=== PATIENT | female | born 1945 | race Caucasian/White ===

== ENCOUNTER 2023-01-01 15:08 | Outpatient (CLI) | payer MEDICARE, BC, SELFPAY | END 2023-01-01 15:09 | disposition home or self-care (01) | LOC: NFLDREF 15:17 | PROVIDERS: PCP Internal Medicine; Visit Provider Internal Medicine | DX: R10.9 Unspecified abdominal pain (principal); R53.81 Other malaise | CPT/HCPCS: 80053; 87086; 87186 ==

== ENCOUNTER 2023-01-03 10:55 | Outpatient (CLI) | payer MEDICARE, BC, SELFPAY ==
--- NOTE | 2023-01-03 11:00 | CRLHL7_ITS ---
For Patients: As a result of the Century Cures Act, medical imaging exams and procedure reports are released immediately into your electronic medical record. You may view this report before your referring provider. If you have questions, please contact your health care provider. Indication: right abdominal pain Technique: Noncontrast CT abdomen and pelvis Please note that all CT scans at this facility use dose modulation, iterative reconstruction, and/or weight-based dosing when appropriate to reduce radiation dose to as low as reasonably achievable. Comparison: 04/29/2020 Findings: Pleural thickening along the right posterior lateral lung base noted. No basilar pneumothorax or infiltrate. The gallbladder is distended and there is wall thickening/wall edema with the gallbladder wall measuring approximately 6 millimeters. Adjacent stranding noted inferior to the gallbladder. Numerous partially calcified gallstones are again noted within the gallbladder. A large stone is present superiorly measuring 3.2 cm which is either new from the prior study or increased in size and may extend into the cystic duct. The pancreas is normal. The spleen is unremarkable. The adrenal glands are within normal limits. Improved appearance of the left kidney with mild residual stone material within the lower pole collecting system measuring up to 8 millimeters. New stones are present within the right kidney including a 1 centimeter stone in the right renal pelvis and a atherosclerotic disease. No bladder stones. Uterus normal. No adnexal mass. There is no bowel obstruction. No abscess. No fracture. No suspicious lymph nodes. 5 millimeter stone in the lower pole collecting system. Impression: Distended gallbladder with gallbladder wall thickening/edema and pericholecystic inflammatory changes. There is a large stone within the gallbladder neck which appears to extend into the proximal cystic duct. Findings are suspicious for acute cholecystitis. Decreased stone burden regarding the left kidney. New stones within the right kidney. Mild residual mucosal hyperemia involving the left renal pelvis. Please note that all CT scans at this facility use dose modulation, iterative reconstruction, and/or weight-based dosing when appropriate to reduce radiation dose to as low as reasonably achievable. Dictated by Jose L Herrera MD @ 01/03/2023 12:34:20 PM (Electronically Signed)
== END 2023-01-03 10:56 | disposition home or self-care (01) ==
PROVIDERS: PCP Internal Medicine; Visit Provider Internal Medicine
DX: R10.9 Unspecified abdominal pain (principal); K80.21 Calculus of gallbladder without cholecystitis with obstruction; N20.0 Calculus of kidney
CPT/HCPCS: 74176

== ENCOUNTER 2023-01-07 13:19 | Outpatient (CLI) | payer MEDICARE, BC, SELFPAY | END 2023-01-07 13:20 | disposition home or self-care (01) | LOC: NFLDREF 13:20 | PROVIDERS: PCP Internal Medicine; Visit Provider Surgery | DX: Z01.818 Encounter for other preprocedural examination (principal) | CPT/HCPCS: 80076 ==

== ENCOUNTER 2023-01-15 16:11 | Inpatient (IN) | payer MEDICARE, BC, SELFPAY ==
[2023-01-14] VITALS (28 sets, daily range): BP systolic 124–154; BP diastolic 63–86; PULSE 75–99; RESP 12–24; TEMP 35.8–37.2; O2SAT 95–100; BMI 29.4
[2023-01-14] MEDS: SODIUM CHLORIDE 0.9 % (FLUSH) 10 ML SYRINGE IVF (07:25)
[2023-01-14] MEDS: LACTATED RINGERS 1000 ML 1,000 ML 100 ML IV ×2 (07:25→23:55)
--- NOTE | 2023-01-14 07:41 | SUR.PREOP ---
Patient provided home covid negative results to RN.
[2023-01-14] MEDS: CEFAZOLIN 2 GM INJ IVP (08:32)
[2023-01-14] MEDS: BUPIVACAINE 0.25% 30 ML INJECTION (09:27)
--- NOTE | 2023-01-14 10:19 | SUR.OPER ---
Pt family updated at 0935 by Fay Lopez RN
[2023-01-14] MEDS: BUPIVACAINE LIPOSOME 133 MG/10 ML INJ INFILTRATI (11:45)
--- NOTE | 2023-01-14 12:11 | W.ANESCHARGE ---
Anesthesia Charges Start Date/Time Anesthesia Start Date: 01/14/23 Anesthesia Start Time: 08:15 Stop Date/Time Anesthesia Stop Date: 01/14/23 Anesthesia Stop Time: 12:14
--- NOTE | 2023-01-14 12:17 | PM.GSPRC ---
Operative Note Date of procedure: 01/14/23 Pre-op diagnosis: Cholecystitis Post-op diagnosis: Gangrenous cholecystitis Type of Procedure: Laparoscopic converted to open fenestrated cholecystectomy Indications: The patient is a 77-year-old female who several weeks ago presented with weakness and vomiting for several days. Workup revealed elevated liver tests and a urinary tract infection. CT scan showed gallbladder wall thickening with edema. The patient was placed on antibiotics and because she is able to tolerate liquids was told to follow up in surgery Clinic. When she was seen in clinic last week she was completely asymptomatic. Her labs had returned to normal. Because of the severity of her symptoms it was recommended that she undergo cholecystectomy. The initial plan was to also perform a cholangiogram given her elevated bilirubin. Procedure Description: After discussing the risks and benefits of the procedure, the patient signed informed consent.? The operative site was marked and the patient was brought to the operating room and placed on the operating table in supine position.? Care was taken to pad the patient's pressure points.?? The patient was then intubated by anesthesia.?? The operative site was then prepped and draped in the usual sterile fashion.? A time-out was then performed. ? Entrance to the abdomen was gained via a 5 mm Visiport in the left upper quadrant. The abdomen was insufflated and briefly surveyed for signs of injury. There was none. A 10 mm umbilical port was placed as well as 2 working ports along the right costal margin, all under direct vision. The patient was then placed in reverse Trendelenburg position with the right side up. There was omentum adherent to the gallbladder and the gallbladder and liver were adherent to the anterior abdominal wall. The omental adhesions were taken down using cautery and blunt dissection. The gallbladder wall was noted to be gangrenous in a few patchy areas. The gallbladder was thickened. A needle was advanced into the abdomen to aspirate bile. The bile was cloudy. This was sent for culture. The gallbladder fundus was grasped and retracted cephalad. The duodenum was noted to be adherent to the infundibulum of the gallbladder. This was carefully taken down with blunt dissection with out noted injury to the duodenum. A combination of hook cautery and blunt dissection was used to attempt to dissect out the cystic duct and artery. The tissue here was very [place], edematous and inflamed. It was very difficult to achieve the critical view. It appeared as though there were at least 2 duct like structures below the infundibulum of the gallbladder. Using a combination of careful blunt dissection using the Noreen dissector and suction irrigation, I attempted to dissect behind the structures, however the tissue was very firm. Using hook cautery, incised the peritoneum on the lateral and medial aspect of the gallbladder I then attempted to remove the gallbladder off of the liver bed higher up and take my dissection inferiorly. However, the gallbladder appeared to be deep within the liver and the the gallbladder tore as I attempted to dissect this. I attempted once more to carefully dissect out the ductal structures below the infundibulum, however the tissue was just too inflamed to do this safely. At this point because I could not dissect out the ductal structures and I also could not establish a plane between the gallbladder and liver, I chose to convert to open. An incision was made 2 finger breaths below the ribs in the right upper quadrant to incorporate 1 of the ports. Dissection was taken down into the subcutaneous tissue using cautery. The fascia was then incised. The muscle fibers were also divided with cautery, with care to cauterize any vessels that were encountered. The Omni retractor was then brought into view and the abdominal wall as well as the colon and stomach were retracted so that the gallbladder was in view. Using cautery, I then incised the peritoneum over the cirrhosis/peritoneum of the gallbladder at the fundus. I left a small cuff of tissue on the liver to use for retraction. Immediately the gallbladder was noted to be gangrenous here. I continued my dissection downward, entering the gallbladder many times as the back wall the gallbladder was completely necrotic. Several large stones were removed from the gallbladder and sent to pathology. I was able to safely reach the level of the infundibulum posteriorly. Now, I was left with what appeared to be the node of Calot in its usual location however the duct and artery were firmly imbedded in to the surrounding inflamed tissue. I attempted dissection with a right angle as well as cautery, however I was unable to safely dissect them out. I then made the decision that I would perform a fenestrated cholecystectomy. Using cautery I divided the gallbladder just proximal to the infundibulum. The area of the cystic artery above where the previously identified likely node was bleeding and was oversewn with 3-0 Vicryl resulting in hemostasis. What appeared to be the duct was identified in the appropriate location. All stones were removed from the gallbladder and the duct. I did attempt to perform a cholangiogram, advancing a cholangiocatheter into the duct, however I was unable to obtain a seal using saline. Therefore I aborted the cholangiogram. I then used cautery to ablate the mucosa of the cuff of gallbladder that remained. I then used 3-0 PDS to over-sew the duct opening after irrigating to ensure that there were no stones impacted within. Hemostasis appeared excellent at this point. I then irrigated the abdomen and ensure that all the stones had been retrieved. A 19 Yoruba Kade drain was placed through the most lateral right-sided port and sewn into place. This was placed just posterior to the cuff of the gallbladder. A tongue of omentum was then created, ligating and dividing this with ties. This was placed over the cuff of gallbladder that remained. The retractors were then removed. The duodenum was again examined and appeared to be without injury. The fascia was then closed in layers using #1 PDS. 0.25% Marcaine with Exparel were then injected into the fascia. The wound was irrigated and Betina's fascia was closed with 3 0 Vicryl suture. The dermal layer was closed with 3 0 Vicryl. The the umbilical port site fascia was closed with 0 Vicryl the left upper quadrant and umbilical port were then closed with 4-0 Monocryl. The right upper quadrant incision was closed with 4-0 Monocryl. Of note, before fascial closure instruments and gloves were changed to a clean setup. Sterile dressings were then applied. Instrument sponge and needle counts were correct at the end of the case. The patient was then woken and transferred to the PACU in stable condition. The patient tolerated the procedure well. Findings: Gangrenous cholecystitis with significant inflammation. Several large gallstones noted within the gallbladder. Anesthesia: GETA Surgeon: Teresa Maurer MD Estimated blood loss (mL): 150 Specimen: Gallbladder Additional Specimen Information: Bile for culture Condition: stable Disposition: PACU
[2023-01-14] MEDS: fentaNYL 100 MCG/2 ML inj 50 MCG IVP ×2 (12:47→13:04)
--- NOTE | 2023-01-14 13:24 | SUR.PHASEI ---
patient met discharge criteria per anesthesia
[2023-01-14] MEDS: HYDROmorphone 0.5 mg/0.5 ml inj IVP ×4 (14:36→23:55)
[2023-01-14] MEDS: PIPERACILLIN/TAZOBACTAM 3.375 GM in 0.9 % SODIUM CHLORIDE Mini-bag 100 ML IVPB ×2 (14:36→19:36)
--- NOTE | 2023-01-14 19:28 | PC.NURSE ---
Pt admit around 1330 from PACU. Initially drowsy, vitals stable on RA, afebrile. Pt stated pain 3/10 to abdomen. Pt has been up x2 ambulating to bathroom. Alert and oriented, pleasant. Dressing to abdomen CDI, NANCY drain had 40ml of bloody output this shift. Pt's cousin 'Felicia' at bedside this shift, pleasant and helpful. Pt voiding pale yellow urine. Pt on clear liquid diet, tolerating thus far. Pt received PRN IV Dilaudid for pain, stated effectiveness. SCDs, TEDs on. Received IV Zosyn. On LR at 100ml/hr. Pt has call light within reach, uses appropriately.
[2023-01-15] VITALS (7 sets, daily range): BP systolic 127–162; BP diastolic 61–80; PULSE 78–89; RESP 16–18; TEMP 36.2–37.3; O2SAT 95–99
[2023-01-15] MEDS: PIPERACILLIN/TAZOBACTAM 3.375 GM in 0.9 % SODIUM CHLORIDE Mini-bag 100 ML IVPB ×4 (01:35→19:38)
[2023-01-15] MEDS: HYDROmorphone 0.5 mg/0.5 ml inj IVP ×7 (02:39→21:38)
--- NOTE | 2023-01-15 06:34 | PC.NURSE ---
Shift note: Surgical dressing is C/D/I, NANCY is draining large amounts serosanguineous/yellowing fluid. Pain 3-5/10 treated per eMAR with relief, pt ambulates to the bathroom with SBA, tolerates activity well. No c/o nausea, afebrile, voiding.
[2023-01-15 06:45] LABS: Basophils Percent Auto 0.2 % (0.0-3.0); Eosinophils Percent Auto 0.1 % (0.0-7.0); Hematocrit 38.4 % (33.0-51.0); Hemoglobin* 12.3 gm/dL (12.0-16.0); Immature Granulocytes Pct Auto 0.1 %; Mean Corpuscular HGB Conc 32 gm/dL (32-36); Mean Corpuscular Hemoglobin 30 pg (26-34); Mean Corpuscular Volume 94 fL (80-100); Monocytes Percent Auto 6.1 % (0.0-11.0); Neutrophils Percent Auto 79.5 % (42.0-72.0); Platelet Count* 354 K/uL (140-440); RDW Coefficient of Variation % 13.5 % (11.5-15.5); Red Blood Count 4.08 m/uL (4.00-5.20); Slide Review Reflex No
[2023-01-15 06:58] LABS: Albumin* 3.4 g/dL (3.3-5.0); Chloride* 107 mmol/L (96-114); Sodium* 138 mmol/L (135-149)
[2023-01-15 06:59] LABS: Potassium* 5.3 mmol/L (3.6-5.1)
[2023-01-15 07:01] LABS: Alanine Aminotransferase* 44 U/L (4-35); Alkaline Phosphatase* 84 U/L (40-150); Aspartate Amino Transferase* 51 U/L (12-35); Bilirubin Direct* 0.1 mg/dL (0.0-0.5); Bilirubin Total* 0.6 mg/dL (0.1-1.5); Blood Urea Nitrogen* 16 mg/dL (7-30); Carbon Dioxide* 27 mmol/L (20-32); Creatinine* 0.8 mg/dL (0.5-1.5); Est. Creatinine Clearance* 37.26; Estimated Glomerular Filt Rate 76 ml/min; Glucose* 121 mg/dL (60-115); Total Protein* 6.3 g/dL (6.0-8.3)
[2023-01-15 07:02] LABS: Calcium* 9.4 mg/dL (8.4-10.6)
--- NOTE | 2023-01-15 09:35 | CRLHL7_ITS ---
For Patients: As a result of the Century Cures Act, medical imaging exams and procedure reports are released immediately into your electronic medical record. You may view this report before your referring provider. If you have questions, please contact your health care provider. HISTORY: 77-year-old female. Status post cholecystectomy on 01/14/2023. Drainage tube in place in the gallbladder fossa. TECHNIQUE: 5.44 millicuries of [id number] was injected intravenously. Images of the liver and abdomen were obtained in the anterior projection for 60 minutes. FINDINGS: There is good uptake of activity by the hepatocytes. There is visualization of the intra and extrahepatic biliary tree and small bowel. There is filling of activity into the gallbladder fossa. This then passes into the drainage tube that is located in the gallbladder fossa. This appears to be arising from the area of the cystic duct. This is consistent with a bile leak. IMPRESSION: 1. There are findings consistent with a bile leak, probably arising from the cystic duct area. 2. These findings were called to and discussed with Dr. Maurer on 01/15/2023 at approximately 2:15 p.m. Dictated by Jose Vicente MD @ 01/15/2023 2:14:53 PM (Electronically Signed)
--- NOTE | 2023-01-15 09:47 | P.GSPN_ITS ---
Subjective Subjective Date Seen: 01/15/23 Interval history: Kailey was stable overnight. No fevers. No nausea. Has not been ambulating in the halls. Pain is reasonably controlled. She has been using her IS but admittedly not frequently. Exam Narrative: Exam Narrative: General: Alert, oriented, no acute distress Pulmonary: Clear to auscultation bilaterally CV: Regular rate and rhythm Abdomen: Dressing is clean and dry. Drain output is bilious appearing. She has had approximately 300 mL out since surgery. Urine output has been copious with almost 2 L out since surgery. Const: Vital Signs, click to edit/add: Vital Signs - 24 hr 01/14/23 12:09 01/14/23 12:20 01/14/23 12:45 Temperature 97.5 F L 97.5 F L 97.3 F L Pulse Rate 77 75 82 Pulse Rate [Right Pulse Oximeter] Respiratory Rate 12 24 20 Blood Pressure 136/63 148/70 H 133/69 Blood Pressure [Le ft Arm] Pulse Oximetry 98 100 97 Oxygen Delivery [facility] 01/14/23 13:00 01/14/23 12:15 01/14/23 12:25 Temperature 97.3 F L 97.5 F L 97.5 F L Pulse Rate 85 77 85 Pulse Rate [Right Pulse Oximeter] Respiratory Rate 20 24 20 Blood Pressure 137/69 142/76 H 142/71 H Blood Pressure [Le ft Arm] Pulse Oximetry 96 100 100 Oxygen Delivery [facility] 01/14/23 12:30 01/14/23 12:35 01/14/23 12:40 Temperature 97.5 F L 97.5 F L 97.3 F L Pulse Rate 85 84 85 Pulse Rate [Right Pulse Oximeter] Respiratory Rate 20 24 20 Blood Pressure 132/74 130/68 134/67 Blood Pressure [Le ft Arm] Pulse Oximetry 97 97 97 Oxygen Delivery [facility] 01/14/23 12:50 01/14/23 12:55 01/14/23 13:05 Temperature 97.3 F L 97.3 F L 97.3 F L Pulse Rate 84 85 85 Pulse Rate [Right Pulse Oximeter] Respiratory Rate 20 16 22 Blood Pressure 127/67 128/66 124/68 Blood Pressure [Le ft Arm] Pulse Oximetry 96 95 97 Oxygen Delivery [facility] 01/14/23 13:10 01/14/23 13:15 01/14/23 13:22 Temperature 97.3 F L 97.3 F L Pulse Rate 85 84 Pulse Rate [Right Pulse Oximeter] Respiratory Rate 22 20 Blood Pressure 128/68 131/66 Blood Pressure [Le ft Arm] Pulse Oximetry 97 97 97 Oxygen Delivery [facility] 01/14/23 13:22 01/14/23 13:22 01/14/23 13:45 Temperature 96.4 F L 96.4 F L 96.9 F L Pulse Rate 88 Pulse Rate [Right Pulse Oximeter] 88 90 Respiratory Rate 20 20 20 Blood Pressure Blood Pressure [Le ft Arm] 130/73 130/73 127/63 Pulse Oximetry 97 96 Oxygen Delivery Me thod Room Air Room Air Room Air 01/14/23 14:00 01/14/23 14:15 01/14/23 14:30 Temperature 96.9 F L 97.6 F Pulse Rate Pulse Rate [Right Pulse Oximeter] 92 84 86 Respiratory Rate 20 20 20 Blood Pressure Blood Pressure [Le ft Arm] 127/65 138/71 128/70 Pulse Oximetry 98 98 98 Oxygen Delivery Me thod Room Air Room Air Room Air 01/14/23 15:00 01/14/23 15:30 01/14/23 16:30 Temperature 97.6 F 97.4 F L Pulse Rate Pulse Rate [Right Pulse Oximeter] 94 93 99 Respiratory Rate 20 20 18 Blood Pressure Blood Pressure [Le ft Arm] 125/71 127/70 134/67 Pulse Oximetry 98 96 96 Oxygen Delivery Me thod Room Air Room Air Room Air 01/14/23 17:30 01/14/23 18:30 01/14/23 19:00 Temperature 97.9 F 97.4 F L 98 F Pulse Rate Pulse Rate [Right Pulse Oximeter] 89 92 94 Respiratory Rate 18 18 18 Blood Pressure Blood Pressure [Le ft Arm] 139/77 154/86 H 147/80 H Pulse Oximetry 96 96 98 Oxygen Delivery Me thod Room Air Room Air Room Air 01/14/23 19:30 01/14/23 23:00 01/14/23 23:00 Temperature 98 F 98 F Pulse Rate Pulse Rate [Right Pulse Oximeter] 94 96 96 Respiratory Rate 18 18 18 Blood Pressure Blood Pressure [Le ft Arm] 147/80 H 153/83 H Pulse Oximetry 98 98 Oxygen Delivery Me thod Room Air Room Air 01/15/23 03:00 01/15/23 07:45 01/15/23 07:45 Temperature 98 F 97.2 F L Pulse Rate Pulse Rate [Right Pulse Oximeter] 89 87 Respiratory Rate 16 16 Blood Pressure Blood Pressure [Le ft Arm] 149/80 H 138/75 Pulse Oximetry 97 97 97 Oxygen Delivery Me thod Room Air Room Air Labs/Imaging Labs Labs: White blood cell count is slightly elevated at 13. Liver tests are normal except for mildly elevated AST and ALT of 51 and 44. Bilirubin is within normal limits. Hemoglobin is 12.3. Electrolytes reveal a mildly elevated potassium at 5.3. Imaging Imaging: HIDA scan done today. 01/15 1. There are findings consistent with a bile leak, probably arising from the cystic duct area. 2. These findings were called to and discussed with Dr. Maurer on 01/15/2023 at approximately 2:15 p.m. Progress Note: A&P Assessment and plan (1) Hyperkalemia: Status: Acute Assessment and Plan: Have stopped lactated Ringer's. Change IV fluids to normal saline. Will recheck potassium. If it remains elevated will treat. (2) S/P cholecystectomy: Status: Acute Assessment and Plan: Gangrenous cholecystitis. Significant inflammation necessitating conversion to open. Cultures of bile pending. Patient remains on antibiotics. Drain left in place. This morning this appears bilious. HIDA scan shows bile leak which appears to be coming from the cystic duct stump based on discussion with radiologist and review of imaging. This is not surprising given the degree of inflammation and quality of the tissue. It appears to be well drained. Discussed with gastroenterology, since patient is stable we are going to plan on attempting to discharge her home with ERCP sphincterotomy and possible stent placement as outpatient. This would likely be done or Saturday. If her status changes and she needs to have the procedure done more urgently then we would potentially perform ambulance transfer pending bed availability. As mentioned the bile leak appears to be well drained at this point. Discuss this with the patient and her family. They are all agreeable with this plan. Plan Continue to encourage IS. Clear liquid diet for now. Will start Lovenox.
[2023-01-15] MEDS: 0.9 % SODIUM CHLORIDE 1000 ml 1,000 ML 125 ML IV ×2 (11:23→21:38)
[2023-01-15] MEDS: ENOXAPARIN 40 MG/0.4 ML INJ SUBCUT (21:38)
--- NOTE | 2023-01-15 23:31 | PC.NURSE ---
End of shift-- Very pleasant and cooperative, alert and oriented patient. VSS and pt is afebrile. SPO2 maintained >94% on RA. Pain appears well managed with Dilaudid PRN. Dressing to abdomen is C/D/I. Lap sites to left of dressing and at umbilicus are FIG WASHER. LS CTA. IS completed to 1250 and pt was encouraged to use independently. BS+ x4, though pt denied passing flatus yet. She denied nausea and tolerated clear liquids for dinner without difficulty. She was up to the BR and ambulated in hallway with SBA and tolerated it well. Report to BENJI Grubbs.
[2023-01-16] VITALS (7 sets, daily range): BP systolic 135–151; BP diastolic 65–83; PULSE 80–96; RESP 16–20; TEMP 36.4–37.1; O2SAT 94–97; BMI 29.4
[2023-01-16] MEDS: HYDROmorphone 0.5 mg/0.5 ml inj IVP ×4 (00:09→08:24)
[2023-01-16] MEDS: PIPERACILLIN/TAZOBACTAM 3.375 GM in 0.9 % SODIUM CHLORIDE Mini-bag 100 ML IVPB ×4 (01:27→19:06)
[2023-01-16] MEDS: 0.9 % SODIUM CHLORIDE 1000 ml 1,000 ML 125 ML IV (06:24)
--- NOTE | 2023-01-16 06:51 | PC.NURSE ---
Pt alert and oriented x3. Afebrile. Pt reports pain 4/10 in abdomen, pain managed with PRN medication. Pt abdominal dressings is?CDI. Pt's NANCY drains are patent and draining.?Pt denies chest pain, SOB, and N/V. Pt is voiding, tolerating a regular diet, up SBA. Pt slept intermittently throughout night. ??
--- NOTE | 2023-01-16 07:40 | PM.GSPN ---
Subjective Subjective Date Seen: 01/16/23 Interval history: Nicolasa is stable this morning. No nausea. No flatus. she feels as though her pain is well controlled. Only has pain with activity. Last night she was up and walks around the unit a small amount. Repeat potassium yesterday was normal. She has noted her drain output has decreased. Exam Narrative: Exam Narrative: General: No acute distress CV: Regular rate and rhythm pulmonary: Clear bilaterally abdomen: Nondistended. Appropriately tender. Some ecchymosis around her right upper quadrant incision. No erythema. Drain with bilious output. 150 mL out yesterday. Urine output charted as 3 L. Const: Vital Signs, click to edit/add: Vital Signs - 24 hr 01/15/23 07:45 01/15/23 07:45 01/15/23 12:15 Temperature 97.2 F L 97.6 F Pulse Rate [Right Pulse Oximeter] 87 79 Respiratory Rate 16 18 Blood Pressure [Le ft Arm] 138/75 147/73 H Pulse Oximetry 97 97 99 Oxygen Delivery Me thod Room Air Room Air 01/15/23 15:36 01/15/23 15:00 01/15/23 19:00 Temperature 98.6 F 99.1 F Pulse Rate [Right Pulse Oximeter] 78 78 87 Respiratory Rate 16 16 18 Blood Pressure [Le ft Arm] 162/79 H 148/74 H Pulse Oximetry 98 97 Oxygen Delivery Me thod Room Air Room Air 01/15/23 11:45 01/15/23 11:45 01/16/23 03:22 Temperature 97.8 F 97.9 F Pulse Rate [Right Pulse Oximeter] 83 83 96 Respiratory Rate 16 16 16 Blood Pressure [Le ft Arm] 127/61 137/65 Pulse Oximetry 95 94 Oxygen Delivery Me thod Room Air Room Air Labs/Imaging Labs Labs: White blood cell Count is normal. Hemoglobin is slightly lower to 11 from 12. I do not Suspect ongoing blood loss. Electrolytes within normal limits LFTs within normal limits Progress Note: A&P Assessment and plan (1) S/P cholecystectomy: Problem details: Gangrenous cholecystitis; lap converted to open Status: Acute Assessment and Plan: Slowly advance diet. Will advance to full liquids today. Instructed her to go slowly. Awaiting return of bowel function prior to discharge. -hyperkalemia has resolved. Will recheck labs today. -Copious urine output. Have stopped IV fluids. -Lovenox for DVT prophylaxis -encourage ambulation and IS. (2) Bile leak, postoperative: Problem details: Cystic duct stump based on HIDA scan Status: Acute Assessment and Plan: Continue antibiotics until ERCP /drain output decreases. Awaiting bile cultures. So far negative. Planning on outpatient ERCP on 01/18/2023 unless patient condition deteriorates.
[2023-01-16 07:58] LABS: Basophils Absolute Auto 0.05 K/uL (0.00-0.30); Basophils Percent Auto 0.6 % (0.0-3.0); Eosinophils Absolute Auto 0.14 K/uL (0.00-0.50); Eosinophils Percent Auto 1.6 % (0.0-7.0); Hematocrit 34.9 % (33.0-51.0); Hemoglobin* 11.1 gm/dL (12.0-16.0); Immature Granulocytes Abs Auto 0.02 K/uL (0.00-0.30); Immature Granulocytes Pct Auto 0.2 %; Lymphocytes Percent Auto 15.7 % (20-44); Mean Corpuscular HGB Conc 32 gm/dL (32-36); Mean Corpuscular Hemoglobin 30 pg (26-34); Mean Corpuscular Volume 95 fL (80-100); Neutrophils Percent Auto 74.9 % (42.0-72.0); Platelet Count* 291 K/uL (140-440); RDW Coefficient of Variation % 13.7 % (11.5-15.5); Red Blood Count 3.69 m/uL (4.00-5.20); White Blood Count* 8.68 K/uL (4.50-11.00)
[2023-01-16 08:01] LABS: Slide Review Reflex No
[2023-01-16 08:09] LABS: Albumin* 3.1 g/dL (3.3-5.0); Chloride* 108 mmol/L (96-114); Sodium* 136 mmol/L (135-149)
[2023-01-16 08:11] LABS: Carbon Dioxide* 25 mmol/L (20-32); Creatinine* 0.7 mg/dL (0.5-1.5); Est. Creatinine Clearance* 37.26; Estimated Glomerular Filt Rate 89 ml/min
[2023-01-16 08:12] LABS: Alanine Aminotransferase* 32 U/L (4-35); Alkaline Phosphatase* 77 U/L (40-150); Aspartate Amino Transferase* 34 U/L (12-35); Bilirubin Direct* 0.2 mg/dL (0.0-0.5); Bilirubin Total* 0.9 mg/dL (0.1-1.5); Blood Urea Nitrogen* 10 mg/dL (7-30); Calcium* 9.1 mg/dL (8.4-10.6); Glucose* 110 mg/dL (60-115); Total Protein* 6.1 g/dL (6.0-8.3)
[2023-01-16] MEDS: ACETAMINOPHEN 325 MG TABLET 650 MG PO (16:02)
[2023-01-16] MEDS: ENOXAPARIN 40 MG/0.4 ML INJ SUBCUT (20:20)
--- NOTE | 2023-01-16 23:34 | PC.NURSE ---
Shift [id number]- Patient receives tylenol for pain and does not complain of pain or further need for pain medications. She walks the hallway this evening. She tolerates advanced diet. NANCY with 15mL and 10mL output. Incision well approximated with scant dried blood to steri strips. She is saline locked.
[2023-01-17] VITALS (7 sets, daily range): BP systolic 135–166; BP diastolic 68–88; PULSE 81–90; RESP 16–20; TEMP 36.6–37.1; O2SAT 95–97
[2023-01-17] MEDS: PIPERACILLIN/TAZOBACTAM 3.375 GM in 0.9 % SODIUM CHLORIDE Mini-bag 100 ML IVPB ×3 (01:04→14:04)
[2023-01-17] MEDS: SODIUM CHLORIDE 0.9 % (FLUSH) 10 ML SYRINGE IVF (01:05)
[2023-01-17] MEDS: ACETAMINOPHEN 325 MG TABLET 650 MG PO ×3 (02:54→23:15)
--- NOTE | 2023-01-17 06:31 | PC.NURSE ---
END OF SHIFT NOTE: PT PLEASANT AND COOPERATIVE. PT DENIES CP, SOB, N/V. AMBULATES WITH A SBA/INDEPENDENT. VSS ON RA; AFEBRILE. PT EDUCATED TO SPLINT ABDOMEN WITH PILLOW WHEN TRANSITIONING TO A SITTING POSITION AND STANDING UP. PT IS A&Ox4. PT REQUESTS MEDS CRUSHED WITH SHERBERT ICE CREAM OR APPLESAUCE. CALL LIGHT WITHIN PT?S REACH.?NANCY DRAIN WITH SCANT AMOUNT OF PURULENT DRAINAGE.
[2023-01-17 06:46] LABS: Basophils Absolute Auto 0.03 K/uL (0.00-0.30); Basophils Percent Auto 0.4 % (0.0-3.0); Eosinophils Absolute Auto 0.21 K/uL (0.00-0.50); Eosinophils Percent Auto 2.9 % (0.0-7.0); Hematocrit 33.7 % (33.0-51.0); Hemoglobin* 10.9 gm/dL (12.0-16.0); Lymphocytes Absolute Auto 1.55 K/uL (0.90-2.90); Lymphocytes Percent Auto 21.2 % (20-44); Mean Corpuscular HGB Conc 32 gm/dL (32-36); Mean Corpuscular Hemoglobin 30 pg (26-34); Mean Corpuscular Volume 93 fL (80-100); Monocytes Percent Auto 8.1 % (0.0-11.0); Neutrophils Absolute Auto 4.92 K/uL (1.7-7.0); Neutrophils Percent Auto 67.4 % (42.0-72.0); Platelet Count* 261 K/uL (140-440); RDW Coefficient of Variation % 13.3 % (11.5-15.5); Red Blood Count 3.64 m/uL (4.00-5.20)
[2023-01-17 07:03] LABS: Slide Review Reflex No
[2023-01-17 07:16] LABS: Albumin* 3.1 g/dL (3.3-5.0); Chloride* 108 mmol/L (96-114)
[2023-01-17 07:17] LABS: Potassium* 3.6 mmol/L (3.6-5.1); Sodium* 137 mmol/L (135-149)
[2023-01-17 07:19] LABS: Bilirubin Direct* 0.1 mg/dL (0.0-0.5); Bilirubin Total* 0.7 mg/dL (0.1-1.5); Carbon Dioxide* 26 mmol/L (20-32); Creatinine* 0.7 mg/dL (0.5-1.5); Est. Creatinine Clearance* 37.26; Estimated Glomerular Filt Rate 89 ml/min; Total Protein* 6.1 g/dL (6.0-8.3)
[2023-01-17 07:20] LABS: Alanine Aminotransferase* 26 U/L (4-35); Alkaline Phosphatase* 78 U/L (40-150); Aspartate Amino Transferase* 27 U/L (12-35); Blood Urea Nitrogen* 7 mg/dL (7-30); Calcium* 9.4 mg/dL (8.4-10.6); Glucose* 111 mg/dL (60-115)
--- NOTE | 2023-01-17 13:15 | P.DS_ITS ---
DS: Providers Provider Time Seen by Provider: 14:10 Date Seen: 01/17/23 Date of admission: 01/15/23 16:11 Primary care physician: Shabnam Allred MD Admitting Clinician: Teresa Maurer MD Consults: 01/16/23 13:18 Consult to Physical Therapy [CONS] Routine Comment: Reason(s) for PT Consult:: Evaluate and Treat Any Restrictions?:: No Restrictions Attending Physician on discharge: Teresa Maurer MD DS: Diagnosis Discharge Diagnosis (1) Bile leak, postoperative: Status: Acute Problem details: Cystic duct stump based on HIDA scan (2) S/P cholecystectomy: Status: Acute Problem details: Gangrenous cholecystitis; lap converted to open DS: Summary Hospital Course Hospital Course: The patient is a 77-year-old female who presented for laparoscopic cholecystectomy for acute cholecystitis. The patient had significant inflammation and gangrene and therefore needed to be converted to an open procedure. She developed a bile leak postoperatively. HIDA scan showed this to be from the cystic duct stump. This was controlled with the surgical drain. She progressed well, was tolerating a diet had good pain control and was ambulating independently. She was able to be discharged home on postop day 4 with plan for follow-up ERCP scheduled a [facility]. Time Spent with Patient Time attestation: Total time spent providing and/or coordinating discharge services: Exam Narrative: Exam Narrative: General: No acute distress CV: Regular rate and rhythm Respiratory: Clear to auscultation bilaterally Abdomen: Incisions without erythema. Small ecchymosis around right upper quadrant incision. Drain with small amount of bilious drainage. Const: Vital Signs, click to edit/add: Vital Signs - 24 hr 01/16/23 15:45 01/16/23 19:41 01/16/23 23:00 Temperature 98.7 F 97.6 F Pulse Rate [Right Pulse Oximeter] 84 87 87 Respiratory Rate 18 18 20 Blood Pressure [Le ft Arm] 138/73 135/83 Pulse Oximetry 96 96 Oxygen Delivery Me thod Room Air Room Air 01/16/23 23:00 01/17/23 03:00 01/17/23 07:50 Temperature 97.7 F 98.3 F 98.0 F Pulse Rate [Right Pulse Oximeter] 87 90 83 Respiratory Rate 20 20 16 Blood Pressure [Le ft Arm] 151/81 H 166/88 H 148/77 H Pulse Oximetry 95 96 97 Oxygen Delivery Me thod Room Air Room Air Room Air 01/17/23 11:23 Temperature 98.5 F Pulse Rate [Right Pulse Oximeter] 83 Respiratory Rate 16 Blood Pressure [Le ft Arm] 135/68 Pulse Oximetry 95 Oxygen Delivery Me thod Room Air DS: Data Data Completed and Pending Completed studies during hospitalization: Pathology shows acute cholecystitis and cholelithiasis. HIDA scan reveals bile leak likely from cystic duct region. Pending studies at discharge: None Labs on day of discharge: Labs from last 24 hours 01/17/23 06:33 WBC 7.30 RBC 3.64 L Hgb 10.9 L Hct 33.7 MCV 93 MCH 30 MCHC 32 RDW Coeff of Brigid 13.3 Plt Count 261 Neut % (Auto) 67.4 Lymph % (Auto) 21.2 [place] % (Auto) 8.1 Eos % (Auto) 2.9 Baso % (Auto) 0.4 Neut # (Auto) 4.92 Lymph # (Auto) 1.55 [place] # (Auto) 0.60 Eos # (Auto) 0.21 Baso # (Auto) 0.03 Sodium 137 Potassium 3.6 Chloride 108 Carbon Dioxide 26 BUN 7 Creatinine 0.7 Estimated Creat Clear 37.26 Estimated GFR 89 Glucose 111 Calcium 9.4 Total Bilirubin 0.7 Direct Bilirubin 0.1 AST 27 ALT 26 Alkaline Phosphatase 78 Total Protein 6.1 Albumin 3.1 L Preliminary micro results at discharge 01/14/23 09:00 Body Fluid Culture - Preliminary Gallbladder Fluid NO GROWTH AFTER 48 HOURS Discharge Plan Discharge Disposition: Home, Self-Care Date of Admission: 01/15/23 16:11 Attending Provider on Discharge: Teresa Maurer Primary Care Provider: Shabnam Allred Condition: Improved Anticipated Discharge Date/Time: 01/18/23 06:00 Discharge Medications: New tramadol 50 mg Tablet 50 mg PO Q6H PRN (Reason: Pain) Qty: 10 0RF amoxicillin-pot clavulanate 875-125 mg tablet 1 tab PO BID Qty: 10 1RF Discharge Orders: Discharge Order (Routine); Ordered 01/18/23 Ordered By: Teresa Maurer Consulting provider completed their portion of the discharge: Yes Patient Education: Amoxicillin/Clavulanate Potassium (By mouth), Tramadol (By mouth), Shmuel-Mckeon Drain Care (DC), General Anesthesia (DC), Laparoscopic Cholecystectomy (DC), Post-Operative Instructions: Laparoscopic Cholecystectomy Additional Instructions: Wound care: Your sutures are under the skin and will dissolve over time. Leave steri strips (white bandages) over incisions until they fall off (or remove after 7 days). OK to shower but avoid bathing, soaking or swimming for 2 weeks. Cover the drain site with Saran wrap in the shower. Pat the incisions dry. No need to wash or scrub the area. Apply ice to the area as needed for swelling. It is also OK to use a heating pad if this provides more comfort to you. Empty and record drain output 3 times a day. Bring record with you to postoperative appointment. Change gauze around drain site daily. Pain control: You were prescribed a pain medication -if your pain is controlled with Tylenol, there is no need to pick this up from the pharmacy. As your pain improves, you can try taking acetaminophen instead of the prescribed pain pill. Take an [id number] stool softener while you are taking prescribed pain medications to help alleviate constipation. I recommend Senna and/or Colace. Take as directed on package. If you have not had a bowel movement in 3 days, try taking Miralax as directed on the package. All of these are available over the counter. Follow-up Follow up with Dr. Maurer next week (01/21 - ok to overbook) Please call if you are experiencing severe pain, nausea, vomiting, difficulty urinating, fever. [facility] (Dr. Maurer RN) number is [phone]. Activity Level: No strenuous activity Activity Detail: No lifting more than 20 lb for 4 weeks. Discharge Diet: Regular Follow Up Appointments: Teresa Maurer MD [Staff Physician] - 01/21/23 1:00 pm Forms: [facility] Inst[facility] Discharge Comments: Please send copy of outpatient H&P from Dr. Allred as well as ANGYA scan report with the patient so that she can give it to Dr. Phelps.
--- NOTE | 2023-01-17 13:15 | PM.GSPN ---
Subjective Subjective Date Seen: 01/17/23 Interval history: Kailey is doing well. She is tolerating a regular diet. She is passing flatus. She is ambulating without difficulty. No nausea. No shortness of breath or fevers. Exam Narrative: Exam Narrative: General: No acute distress CV: Regular rate and rhythm Respiratory: Clear to auscultation bilaterally Abdomen: Appropriately tender for the postoperative state. Upper abdominal incision is clean and dry without erythema. Small amount of ecchymosis noted. A small amount of bilious drainage in the drain. Output has decreased from yesterday. Const: Vital Signs, click to edit/add: Vital Signs - 24 hr 01/16/23 15:45 01/16/23 19:41 01/16/23 23:00 Temperature 98.7 F 97.6 F Pulse Rate [Right Pulse Oximeter] 84 87 87 Respiratory Rate 18 18 20 Blood Pressure [Le ft Arm] 138/73 135/83 Pulse Oximetry 96 96 Oxygen Delivery Me thod Room Air Room Air 01/16/23 23:00 01/17/23 03:00 01/17/23 07:50 Temperature 97.7 F 98.3 F 98.0 F Pulse Rate [Right Pulse Oximeter] 87 90 83 Respiratory Rate 20 20 16 Blood Pressure [Le ft Arm] 151/81 H 166/88 H 148/77 H Pulse Oximetry 95 96 97 Oxygen Delivery Me thod Room Air Room Air Room Air 01/17/23 11:23 Temperature 98.5 F Pulse Rate [Right Pulse Oximeter] 83 Respiratory Rate 16 Blood Pressure [Le ft Arm] 135/68 Pulse Oximetry 95 Oxygen Delivery Me thod Room Air Labs/Imaging Labs Labs: Electrolytes and LFTs are all within normal limits. White blood cell count is normal. No left shift. Patient has a stable hemoglobin. No signs of ongoing blood loss. Progress Note: A&P Assessment and plan (1) Bile leak, postoperative: Problem details: Cystic duct stump based on HIDA scan Status: Acute (2) S/P cholecystectomy: Problem details: Gangrenous cholecystitis; lap converted to open Status: Acute Plan The patient is a 77-year-old female who is postop day 3 from laparoscopic converted to open cholecystectomy for gangrenous cholecystitis. Postoperatively she developed a bile leak which does detected in her drain. This appears to be coming from the cystic duct stump. She is overall progressing very well, with partial return of bowel function, tolerating a diet and being afebrile with pain controlled on Tylenol. Cultures remain negative from her bile. We will continue antibiotics until she undergoes ERCP to ensure that her bile leak is controlled. I have arranged this with [place] [facility]. This will be done tomorrow morning. We will plan on discharge in the morning and the patient will get a ride from her cousin. She will follow up with me next Saturday.
[2023-01-17] MEDS: AMOXICILLIN/CLAVULANATE 875 mg/125 mg TABLET PO (16:34)
[2023-01-18 03:00] VITALS: RESP 18
--- NOTE | 2023-01-18 05:40 | PC.NURSE ---
END OF SHIFT NOTE: PT PLEASANT AND COOPERATIVE. DENIES CP, SOB, N/V. AMBULATES INDEPENDENTLY WITHIN ROOM. VSS ON RA; AFEBRILE. EDUCATION ON NANCY DRAIN. CALL LIGHT WITHIN PT?S REACH.?NANCY OUTPUT 25ML AND 5ML THIS SHIFT. PRN PAIN MED GIVEN FOR ABDOMINAL DISCOMFORT, ALONG WITH ACTIVE ICE. INCISIONAL DRESSING CDI. DC PAPERWORK REVIEWED AND SIGNED.
== END 2023-01-18 05:25 | disposition home or self-care (01) | DRG 415 ==
LOC: OR 16:13 → MEDSURG 01-16 13:18
PROVIDERS: Admitting Provider Surgery; PCP Internal Medicine; Visit Provider Surgery
PROC: 0FT44ZZ Resection of Gallbladder, Percutaneous Endoscopic Approach (ICD-10-PCS; CPT 47563; principal; 2023-01-14 08:00)
DX: K80.00 Calculus of gallbladder with acute cholecystitis without obstruction (principal); K91.89 Other postprocedural complications and disorders of digestive system; K82.A1 Gangrene of gallbladder in cholecystitis; Z53.31 Laparoscopic surgical procedure converted to open procedure; E87.5 Hyperkalemia
CPT/HCPCS: 36415; 78226; 790; 80048; 80076; 84132; 85025; 87070; 87075; 87205; 88304; 97161; A9270; A9537; C9290; J0131; J0330; J0690; J1100; J1170; J1200; J1650; J1885; J2405; J2543; J2704; J3010; J3475; J3490; J7030; J7120

== ENCOUNTER 2023-04-04 12:18 | Outpatient (CLI) | payer MEDICARE, BC, SELFPAY ==
[2023-04-04 12:28] LABS: Bacteria Urine Moderate; Squamous Epithelial Cell Urine Few (None-Few); WBC Clumps Urine Few; WBC Urine >100 (0-5)
== END 2023-04-04 12:19 | disposition home or self-care (01) ==
LOC: NFLDUCREF 12:18
PROVIDERS: PCP Internal Medicine; Visit Provider Nurse Practitioner Family
DX: R30.0 Dysuria (principal); N39.0 Urinary tract infection, site not specified
CPT/HCPCS: 81015; 87086; 87186

== ENCOUNTER 2023-05-04 10:23 | Emergency (ER) | payer MEDICARE, BC, SELFPAY ==
[2023-05-04 10:32] VITALS: BP 155/87; PULSE 102; RESP 18; TEMP 36.5; O2SAT 99; BMI 28.7
[2023-05-04 11:11] VITALS: BP 173/86; PULSE 96; RESP 16; O2SAT 98
--- NOTE | 2023-05-04 11:12 | ED.GENADULT ---
HPI - General Adult General Chief complaint: Syncope/Fainted Stated complaint: almost passed out Time Seen by Provider: 05/04/23 11:10 History of Present Illness HPI narrative: pt downtown and started to feel lightheaded. able to drive self home but thought a few times she should maybe harness puller. this scared pt. normally healthy and not on any medication. yesterday when on the phone for 3 seconds felt weird. made appt for dr. crockett for a week from saturday. occassionally pt has an odd feeling that she wonders is anxiety 77-year-old woman presenting to the emergency department with concern of feeling lightheaded. She is generally healthy and so this is particularly bothersome. She does acknowledge what I note to be mildly elevated blood pressures saying they are always high when she goes in. Does not take any regular medications. Had been out downtown today and on her way back to the car suddenly feeling lightheaded. Not really dizzy. No sense of shortness of breath or chest pain or palpitations. This occurred a little bit more while she was driving so she thought she should come be evaluated. Yesterday while on the phone had a similar sensation for about 3 seconds. She does wonder sometimes if she is struggling with anxiety after husbands about a year and half ago. No first-degree relatives with any dysrhythmia sore cardiovascular events or CVAs. She does not smoke. This symptoms today were not associated with any alcohol consumption; at least she has not had any. Related Data Home Medications Medication Instructions Recorded Confirmed No Known Home Medications 05/04/23 05/04/23 Allergies Allergy/AdvReac Type Severity Reaction Status Date / Time codeine Allergy Verified 04/04/23 12:27 Sulfa (Sulfonamide Allergy Verified 04/04/23 12:27 Antibiotics) Review of Systems Status of ROS: Reports: 6 or more systems reviewed and unremarkable except as noted in History and below [facility] Medical History UTI (urinary tract infection) ?N39.0 - Urinary tract infection, site not specified (ICD-10) History of uric acid staghorn calculus ?Z87.442 - Personal history of urinary calculi (ICD-10) Surgical History History of cholecystectomy ?Z90.49 - Acquired absence of other specified parts of digestive tract (ICD-10) History of extraction of renal calculus ?Z98.890 - Other specified postprocedural states (ICD-10) ?Z87.442 - Personal history of urinary calculi (ICD-10) History of section ?Z98.891 - History of uterine scar from previous surgery (ICD-10) History of fracture of wrist ?Z87.81 - Personal history of (healed) traumatic fracture (ICD-10) Social History Narrative: Non-smoker, very little EtOH, lives alone. Retired high school counselor. Smoking Status: Never smoker How often do you have a drink containing alcohol: monthly or less Alcohol type: wine How many standard drinks containing alcohol do you have on a typical day: 1 or 2 How often do you have six or more drinks on one occasion: Never AUDIT-C Alcohol total score: 1 Non-prescribed substance use: denies use Caffeine: Yes (very little) Little interest or pleasure in doing things: not at all Feeling down, depressed, or hopeless: not at all Are you using contraception or practicing any form of control: No Exam Narrative: Exam Narrative: Pleasant. NAD. Speaking fluidly easily. Cranial nerves 2-12 intact. No nystagmus. Pupils are equal and brisk and accommodating. Lungs are clear. Heart with mildly elevated rate in a regular rhythm. Abdomen is soft. Moving all extremities fluidly, without difficulty which are well perfused and without edema. Const: Vital Signs, click to edit/add: Vital Signs - 24 hr 05/04/23 10:32 05/04/23 11:11 05/04/23 11:25 Temperature 97.7 F Pulse Rate [Pulse Oximeter] 102 H 96 97 Pulse Rate [orthos tatic lying Left P ulse Oximeter] Pulse Rate [orthos tatic sitting Left Pulse Oximeter] Pulse Rate [orthos tatic standing Lef t Pulse Oximeter] Respiratory Rate 18 16 16 Blood Pressure [Le ft Upper Arm] 155/87 H 173/86 H 148/87 H Blood Pressure [or thostatic lying] Blood Pressure [or thostatic sitting Right Arm] Blood Pressure [or thostatic standing Right Arm] Pulse Oximetry 99 98 98 Oxygen Delivery Me thod Room Air Room Air Room Air 05/04/23 12:17 Temperature Pulse Rate [Pulse Oximeter] Pulse Rate [orthos tatic lying Left P ulse Oximeter] 93 Pulse Rate [orthos tatic sitting Left Pulse Oximeter] 93 Pulse Rate [orthos tatic standing Lef t Pulse Oximeter] 90 Respiratory Rate Blood Pressure [Le ft Upper Arm] Blood Pressure [or thostatic lying] 155/85 H Blood Pressure [or thostatic sitting Right Arm] 165/95 H Blood Pressure [or thostatic standing Right Arm] 152/86 H Pulse Oximetry Oxygen Delivery Me thod Documenting provider has reviewed patient's vital signs: yes Course Vital Signs Vital signs: Initial Vital Signs Temperature 97.7 F 05/04/23 10:32 Temperature Source Temporal Artery Scan 05/04/23 10:32 Pulse Rate 102 H 05/04/23 10:32 Respiratory Rate 18 05/04/23 10:32 Blood Pressure 155/87 H 05/04/23 10:32 Blood Pressure Mean 109 H 05/04/23 10:32 Blood Pressure Position Supine 05/04/23 10:32 Pulse Oximetry 99 05/04/23 10:32 Oxygen Delivery Method Room Air 05/04/23 10:32 Vital Signs Temperature 97.7 F 05/04/23 10:32 Pulse Rate 102 H 05/04/23 10:32 Respiratory Rate 18 05/04/23 10:32 Blood Pressure 155/87 H 05/04/23 10:32 Pulse Oximetry 99 05/04/23 10:32 Oxygen Delivery Method Room Air 05/04/23 10:32 Temperature 97.7 F 05/04/23 10:32 Pulse Rate 93 05/04/23 12:17 Respiratory Rate 16 05/04/23 11:25 Blood Pressure 155/85 H 05/04/23 12:17 Pulse Oximetry 98 05/04/23 11:25 Oxygen Delivery Method Room Air 05/04/23 11:25 Medical Decision Making MDM Narrative Medical decision making narrative: By the time I am seeing Ms. Gonzalez she has been monitored on hall monitor for about an hour. Heart rate remains little bit elevated since arrival here. There do not seem to be any objective findings for symptoms consistent with stroke. Furthermore lightheadedness of associate maybe more with cardiovascular/arrhythmia. Does not seem particularly anxious other than pressures pulse being a little bit elevated. Was not in a particular stressful situation/activity. She would not consider herself to be dehydrated or overheated. Continue to monitor on hall monitor. Initial EKG reviewed by me shows normal sinus rhythm at a rate of 98. No ischemic changes. Orthostatics were normal Will discuss further with her potential head imaging. Labs ultimately remarkable for positive urinalysis. I think this is maybe more consistent/an explanation for the subtle symptoms she is describing. Cardiac labs, monitoring were normal. Lab Data Lab results reviewed: Yes I reviewed the patient's lab results Labs: Lab Results 05/04/23 05/04/23 Range/Units 11:40 11:55 WBC 6.07 (4.50-11.00) K/uL RBC 4.77 (4.00-5.20) m/uL Hgb 14.3 (12.0-16.0) gm/dL Hct 44.3 (33.0-51.0) % MCV 93 (80-100) fL MCH 30 (26-34) pg MCHC 32 (32-36) gm/dL RDW Coeff of Brigid 12.4 (11.5-15.5) % Plt Count 256 (140-440) K/uL Neut % (Auto) 77.4 H (42.0-72.0) % Lymph % (Auto) 16.0 L (20-44) % [place] % (Auto) 5.4 (0.0-11.0) % Eos % (Auto) 0.7 (0.0-7.0) % Baso % (Auto) 0.5 (0.0-3.0) % Neut # (Auto) 4.70 (1.7-7.0) K/uL Lymph # (Auto) 1.00 (0.90-2.90) K/uL [place] # (Auto) 0.30 (0.00-0.90) K/UL Eos # (Auto) 0.04 (0.00-0.50) K/uL Baso # (Auto) 0.03 (0.00-0.30) K/uL Abs Immat Gran (auto) 0.00 (0.00-0.30) K/uL Imm/Tot Granulo (auto) 0.0 % D-Dimer Quant (PE/DVT) 0.40 (0.00-0.50) ug/ml Sodium 139 (135-149) mmol/L Potassium 4.0 (3.6-5.1) mmol/L Chloride 104 (96-114) mmol/L Carbon Dioxide 26 (20-32) mmol/L BUN 20 (7-30) mg/dL Creatinine 0.8 (0.5-1.5) mg/dL Estimated Creat Clear 37.26 Estimated GFR 76 ml/min Glucose 150 H (60-115) mg/dL Calcium 10.1 (8.4-10.6) mg/dL Troponin I < 0.01 L (0.01-0.04) ng/mL C-Reactive Protein < 0.5 L (0.5-1.0) mg/dL NT-Pro-B Natriuret Pep 29 pg/mL Urine Color Light yellow (Yellow) Urine Appearance Cloudy A (Clear) Urine pH 7.0 (5.0-8.5) Ur Specific [place] 1.015 (1.000-1.030) Urine Protein 1+ A (Negative) Urine Glucose (UA) Negative (Negative) Urine Ketones Negative (Negative) Urine Blood 2+ A (Negative) Urine Nitrite Positive A (Negative) Urine Bilirubin Negative (Negative) Urine Urobilinogen 0.2 (0.2-1.0) Ur Leukocyte Esterase 3+ A (Negative) Urine RBC 2-5 A (0-2) Urine WBC 50-100 A (0-5) Ur Squamous Epith Cells Few (None-Few) Urine Bacteria Few A (None) ECG Data Attestation: I personally reviewed and interpreted this ECG as follows: (Normal sinus rhythm rate of 98 no ischemic changes) Discharge Plan Discharge Clinical Impression: Light-headed, Cystitis Patient Disposition: Home, Self-Care Condition: Stable Additional Instructions: Continue to focus on hydration with unsugared/unsweetened liquid like water. Return/be seen for repeated vomiting, increasing abdominal pain, worsening and persistent lightheadedness, fever. Can take phenazopyridine for burning if necessary. I would discuss [place] with your doctor on follow-up. Urine culture will be pending here. Will change up the antibiotics a little bit today and try ciprofloxacin. It should work based on your sensitivities from prior cultures Ciprofloxacin from [facility]. Prescriptions: No Action No Known Home Medications Follow Up/Referrals: Shabnam Crockett MD [Primary Care Provider] - Stand Alone Forms: [employer] Info Instructions
[2023-05-04 11:25] VITALS: BP 148/87; PULSE 97; RESP 16; O2SAT 98
[2023-05-04 11:47] LABS: Appearance Urine Cloudy (Clear); Bilirubin Urine Negative (Negative); Blood Urine 2+ (Negative); Color Urine Light yellow (Yellow); Glucose Urine Negative (Negative); Ketones Urine Negative (Negative); Leukocyte Esterase Urine 3+ (Negative); Nitrite Urine Positive (Negative); Protein Urine 1+ (Negative); Specific Gravity Urine 1.015 (1.000-1.030); Urobilinogen Urine 0.2 (0.2-1.0)
[2023-05-04 12:00] LABS: Bacteria Urine Few; Squamous Epithelial Cell Urine Few (None-Few); WBC Urine 50-100 (0-5)
[2023-05-04 12:12] LABS: Basophils Absolute Auto 0.03 K/uL (0.00-0.30); Basophils Percent Auto 0.5 % (0.0-3.0); Eosinophils Absolute Auto 0.04 K/uL (0.00-0.50); Eosinophils Percent Auto 0.7 % (0.0-7.0); Hematocrit 44.3 % (33.0-51.0); Hemoglobin* 14.3 gm/dL (12.0-16.0); Mean Corpuscular HGB Conc 32 gm/dL (32-36); Mean Corpuscular Hemoglobin 30 pg (26-34); Mean Corpuscular Volume 93 fL (80-100); Monocytes Percent Auto 5.4 % (0.0-11.0); Neutrophils Percent Auto 77.4 % (42.0-72.0); Platelet Count* 256 K/uL (140-440); RDW Coefficient of Variation % 12.4 % (11.5-15.5); Red Blood Count 4.77 m/uL (4.00-5.20); White Blood Count* 6.07 K/uL (4.50-11.00)
[2023-05-04 12:16] LABS: Slide Review Reflex No
[2023-05-04 12:17] VITALS: BP 152/86; BP 155/85; BP 165/95; PULSE 90; PULSE 93
[2023-05-04 12:24] LABS: Chloride* 104 mmol/L (96-114)
[2023-05-04 12:25] LABS: Sodium* 139 mmol/L (135-149)
[2023-05-04 12:27] LABS: Creatinine* 0.8 mg/dL (0.5-1.5); Est. Creatinine Clearance* 37.26; Estimated Glomerular Filt Rate 76 ml/min
[2023-05-04 12:28] LABS: Blood Urea Nitrogen* 20 mg/dL (7-30); Calcium* 10.1 mg/dL (8.4-10.6); Carbon Dioxide* 26 mmol/L (20-32); Glucose* 150 mg/dL (60-115)
[2023-05-04 12:32] LABS: C Reactive Protein* < 0.5 mg/dL (0.5-1.0)
[2023-05-04 12:42] LABS: NT Pro B Type NatriureticPept* 29 pg/mL; Troponin I* < 0.01 ng/mL (0.01-0.04)
== END 2023-05-04 13:44 | disposition home or self-care (01) ==
PROVIDERS: Emergency Provider Family Medicine; PCP Internal Medicine
DX: R42 Dizziness and giddiness (principal); N30.90 Cystitis, unspecified without hematuria
CPT/HCPCS: 36415; 80048; 81001; 83880; 84484; 85025; 85379; 86140; 87086; 87186; 93005; 99284

== ENCOUNTER 2023-05-09 22:24 | Observation (INO) | payer MEDICARE, BC, SELFPAY ==
[2023-05-09] VITALS (9 sets, daily range): BP systolic 154–167; BP diastolic 79–82; PULSE 94–100; RESP 16; TEMP 36.2; O2SAT 92–99; BMI 28.7
--- NOTE | 2023-05-09 23:07 | CRLHL7_ITS ---
For Patients: As a result of the Century Cures Act, medical imaging exams and procedure reports are released immediately into your electronic medical record. You may view this report before your referring provider. If you have questions, please contact your health care provider. INDICATION: Dizziness TECHNIQUE: CT Head without i.v. contrast. Coronal and sagittal reformats were obtained. COMPARISON: None FINDINGS: CSF space: Unremarkable for age. Brain: No evidence of mass, acute infarction or hemorrhage is seen. No mass-effect or midline shift is seen. Mild diffuse cortical atrophy is noted. The brain parenchyma is otherwise normal in appearance with preservation of the grover-white matter junction. Calvarium: The visualized paranasal sinuses are well aerated. The mastoid air cells are clear. The visualized orbits are grossly unremarkable. The calvarium is unremarkable in appearance with no fractures identified. IMPRESSION: 1. No evidence of acute infarction, intracranial hemorrhage, or mass-effect seen. The findings were discussed with Dr. Schofield at 11:55 PM. Please note that all CT scans at this facility use dose modulation, iterative reconstruction, and/or weight-based dosing when appropriate to reduce radiation dose to as low as reasonably achievable. Dictated by: Bo Montaño MD @ 05/09/2023 23:56:33 (Electronically Signed)
--- NOTE | 2023-05-09 23:07 | CT_ITS ---
Final Report Patient: BENJAMIN PENDLETON Facility:?[facility] Patient ID:?[id number] Site Patient ID:?[id number]. Site :?[id number] Study:?CT Neck Angio Angio WITH 95CC [id number] CONTRAST STR-05/09/2023 11:47:13 PM Ordering Physician:?Chandu Oseguera Final Report: INDICATION: Acute stroke. TECHNIQUE: CTA neck with contrast bolus tracking, 3D angiographic rendering using maximum intensity projection (MIP) and images permanently archived. FINDINGS: There is no significant carotid artery stenosis or dissection. There is no significant vertebral artery stenosis or dissection. The soft tissues of the neck are within normal limits. Degenerative changes are noted in the cervical spine. IMPRESSION: No significant carotid or vertebral artery stenosis or dissection. Please note that all CT scans at this facility use dose modulation, iterative reconstruction, and/or weight-based dosing when appropriate to reduce radiation dose to as low as reasonably achievable. Dictated by Donavon Singh MD @ 05/10/2023 5:43:52 AM (Electronic Signature)
[2023-05-09 23:16] LABS: Basophils Absolute Auto 0.04 K/uL (0.00-0.30); Basophils Percent Auto 0.6 % (0.0-3.0); Eosinophils Absolute Auto 0.11 K/uL (0.00-0.50); Eosinophils Percent Auto 1.7 % (0.0-7.0); Hematocrit 41.7 % (33.0-51.0); Hemoglobin* 13.6 gm/dL (12.0-16.0); Immature Granulocytes Abs Auto 0.01 K/uL (0.00-0.30); Immature Granulocytes Pct Auto 0.2 %; Lymphocytes Absolute Auto 1.87 K/uL (0.90-2.90); Mean Corpuscular HGB Conc 33 gm/dL (32-36); Mean Corpuscular Hemoglobin 30 pg (26-34); Mean Corpuscular Volume 92 fL (80-100); Monocytes Percent Auto 6.7 % (0.0-11.0); Neutrophils Absolute Auto 3.98 K/uL (1.7-7.0); Neutrophils Percent Auto 61.8 % (42.0-72.0); Platelet Count* 232 K/uL (140-440); RDW Coefficient of Variation % 12.4 % (11.5-15.5); Red Blood Count 4.54 m/uL (4.00-5.20); White Blood Count* 6.44 K/uL (4.50-11.00)
--- NOTE | 2023-05-09 23:17 | ED_ITS ---
HPI - General Adult General Time Seen by Provider: 23:19 Date Seen: 05/09/23 Chief complaint: Unspecified Complaint, Adult Stated complaint: near syncope Time Seen by Provider: 05/09/23 22:32 Source: patient Mode of arrival: ambulatory Limitations: no limitations History of Present Illness HPI narrative: Patient is a 77-year-old female with no pertinent medical history presented emergency department for dizziness. Patient states roughly 21:00 she has had a 15 minutes episode of dizziness which states she felt like everything was rocking back and forth. She says was very hard to concentrated was going on and she says is very difficult to describe what exactly happened. She says symptoms resolved and then while speaking to her she said she felt that the symptoms are coming back on but they quickly resolved again. She has symptoms like this 1 week ago which she came in she says she was describing to the provider that felt like lightheadedness but after further questioning it does not. At the symptoms were the same as they were 1 week ago. She states she never felt that she is going to pass out in the room never was going black. She has no history of strokes or TIAs. Denies chest pain, headache, weakness, numbness, diarrhea, constipation, vision changes, abdominal pain, shortness of breath, nausea, vomiting. Patient states she has been very anxious lately is wondering if that is causing her symptoms. Related Data Home Medications Medication Instructions Recorded Confirmed ciprofloxacin HCl 500 mg tablet 500 mg PO BID 05/09/23 05/09/23 Allergies Allergy/AdvReac Type Severity Reaction Status Date / Time codeine Allergy Verified 04/04/23 12:27 Sulfa (Sulfonamide Allergy Verified 04/04/23 12:27 Antibiotics) Review of Systems Status of ROS: Reports: 10 or more systems reviewed and unremarkable except as noted in History and below [facility] Medical History UTI (urinary tract infection) ?N39.0 - Urinary tract infection, site not specified (ICD-10) History of uric acid staghorn calculus ?Z87.442 - Personal history of urinary calculi (ICD-10) Surgical History History of cholecystectomy ?Z90.49 - Acquired absence of other specified parts of digestive tract (ICD- 10) History of extraction of renal calculus ?Z98.890 - Other specified postprocedural states (ICD-10) ?Z87.442 - Personal history of urinary calculi (ICD-10) History of section ?Z98.891 - History of uterine scar from previous surgery (ICD-10) History of fracture of wrist ?Z87.81 - Personal history of (healed) traumatic fracture (ICD-10) Social History Narrative: Non-smoker, very little EtOH, lives alone. Retired high school counselor. Smoking Status: Never smoker How often do you have a drink containing alcohol: monthly or less Alcohol type: wine How many standard drinks containing alcohol do you have on a typical day: 1 or 2 How often do you have six or more drinks on one occasion: Never AUDIT-C Alcohol total score: 1 Non-prescribed substance use: denies use Caffeine: Yes (very little) Little interest or pleasure in doing things: not at all Feeling down, depressed, or hopeless: not at all Are you using contraception or practicing any form of control: No Exam Narrative: Exam Narrative: Const: Well-nourished, Well-developed, in mild distress Eyes: PERRL, no conjunctival injection, and symmetrical lids ENMT: Atraumatic external nose and ears. Moist mucous membranes. Neck: Symmetric, trachea midline, No thyromegaly. CVS: RRR, No murmurs or gallops. Peripheral pulses 2+ and equal in all extremities RESP: Unlabored respiratory effort. Clear to auscultation bilaterally. GI: Nontender/Nondistended, No rebound or guarding. MSK:Extremities w/o deformity, Normal Active ROM Skin: Warm, Dry. No rashes or lesions. Neuro: Normal Muscle tone, Cranial nerves 2-12 grossly intact, normal [id number], normal [id number], normal gait, normal strength 5/5 upper lower extremities bilaterally, normal sensation upper and lower extremities bilaterally, normal rapid alternating movements. Psych: Awake, Alert, & Oriented x3. Appropriate mood and affect. Const: Vital Signs, click to edit/add: Vital Signs - 24 hr 05/09/23 22:44 05/09/23 23:07 05/09/23 23:18 Temperature 97.2 F L Pulse Rate Pulse Rate [Right Pulse Oximeter] 95 Respiratory Rate 16 Blood Pressure 165/81 H Blood Pressure [Ri ght Upper Arm] 167/80 H Pulse Oximetry 99 96 Oxygen Delivery Me thod Room Air 05/09/23 23:29 05/09/23 23:30 05/09/23 23:36 Temperature Pulse Rate 100 100 95 Pulse Rate [Right Pulse Oximeter] Respiratory Rate Blood Pressure 154/79 H Blood Pressure [Ri ght Upper Arm] Pulse Oximetry 92 98 99 Oxygen Delivery Me thod 05/09/23 23:37 05/09/23 23:45 05/09/23 23:47 Temperature Pulse Rate 95 94 Pulse Rate [Right Pulse Oximeter] Respiratory Rate Blood Pressure 160/82 H Blood Pressure [Ri ght Upper Arm] Pulse Oximetry 98 98 Oxygen Delivery Me thod 05/10/23 00:00 05/10/23 00:02 05/10/23 00:02 Temperature Pulse Rate 97 100 100 Pulse Rate [Right Pulse Oximeter] Respiratory Rate Blood Pressure 145/72 H 145/72 H Blood Pressure [Ri ght Upper Arm] Pulse Oximetry 98 97 97 Oxygen Delivery Me thod 05/10/23 00:02 05/10/23 00:02 05/10/23 00:03 Temperature Pulse Rate 100 100 98 Pulse Rate [Right Pulse Oximeter] Respiratory Rate Blood Pressure 145/72 H 145/72 H Blood Pressure [Ri ght Upper Arm] Pulse Oximetry 97 97 97 Oxygen Delivery Me thod 05/10/23 00:31 05/10/23 00:32 05/10/23 00:45 Temperature Pulse Rate 102 H 101 H 101 H Pulse Rate [Right Pulse Oximeter] Respiratory Rate Blood Pressure 153/96 H Blood Pressure [Ri ght Upper Arm] Pulse Oximetry 96 97 96 Oxygen Delivery Me thod 05/10/23 00:46 05/10/23 01:00 05/10/23 01:02 Temperature Pulse Rate 102 H 101 H 102 H Pulse Rate [Right Pulse Oximeter] Respiratory Rate Blood Pressure 150/81 H 146/83 H Blood Pressure [Ri ght Upper Arm] Pulse Oximetry 94 97 96 Oxygen Delivery Me thod Course Vital Signs Vital signs: Initial Vital Signs Temperature 97.2 F L 05/09/23 22:44 Temperature Source Temporal Artery Scan 05/09/23 22:44 Pulse Rate 95 05/09/23 22:44 Respiratory Rate 16 05/09/23 22:44 Blood Pressure 167/80 H 05/09/23 22:44 Blood Pressure Mean 109 H 05/09/23 22:44 Blood Pressure Position Sitting 05/09/23 22:44 Pulse Oximetry 99 05/09/23 22:44 Oxygen Delivery Method Room Air 05/09/23 22:44 Vital Signs Temperature 97.2 F L 05/09/23 22:44 Pulse Rate 95 05/09/23 22:44 Respiratory Rate 16 05/09/23 22:44 Blood Pressure 167/80 H 05/09/23 22:44 Pulse Oximetry 99 05/09/23 22:44 Oxygen Delivery Method Room Air 05/09/23 22:44 Temperature 97.2 F L 05/09/23 22:44 Pulse Rate 102 H 05/10/23 01:02 Respiratory Rate 16 05/09/23 22:44 Blood Pressure 146/83 H 05/10/23 01:02 Pulse Oximetry 96 05/10/23 01:02 Oxygen Delivery Method Room Air 05/09/23 22:44 Medical Decision Making MDM Narrative Medical decision making narrative: Patient is a 77-year-old female presenting emergency department for dizziness. Symptoms started about 2 hours ago and lasted about 15 minutes. She describes that is rocking back and forth. States she never felt that she was going to pass out. Symptoms occurred last week also. She did appear to start developing the symptoms again while speaking to her but she states that quickly resolved. With very vague symptoms and is unsure of what exactly is going on with her I did find it did in the best interest to call a code stroke. I spoke to Dr. Cally Hernandez of [facility]. I spoke to her about the patient's symptoms explained to her what to do a head CT in the head and neck CTA emboli the patient likely needs an MRI in the morning. She states she agrees with me in states considering symptoms have resolved and the vagueness of them she is unlikely to be a thrombolytics candidate either way. [place] stroke protocol orders were ordered. These include a BMP, CBC, PTT, INR. I do not believe this is cardiac in nature at this time. CT of the head showed no acute abnormalities. There were only preliminary read for the CTA head and neck in the showed no concerning abnormalities. Will not get final reads until 08:00. Patient has never gone returned showing no concerning abnormalities. Her vital signs are all stable at this time. Did this would admit the patient to the hospitalist service. Stef was contacted and patient was admitted. She is agreeable to this plan. Lab Data Labs: Lab Results 05/09/23 Range/Units 23:10 WBC 6.44 (4.50-11.00) K/uL RBC 4.54 (4.00-5.20) m/uL Hgb 13.6 (12.0-16.0) gm/dL Hct 41.7 (33.0-51.0) % MCV 92 (80-100) fL MCH 30 (26-34) pg MCHC 33 (32-36) gm/dL RDW Coeff of Brigid 12.4 (11.5-15.5) % Plt Count 232 (140-440) K/uL Neut % (Auto) 61.8 (42.0-72.0) % Lymph % (Auto) 29.0 (20-44) % Cooke % (Auto) 6.7 (0.0-11.0) % Eos % (Auto) 1.7 (0.0-7.0) % Baso % (Auto) 0.6 (0.0-3.0) % Neut # (Auto) 3.98 (1.7-7.0) K/uL Lymph # (Auto) 1.87 (0.90-2.90) K/uL Cooke # (Auto) 0.40 (0.00-0.90) K/UL Eos # (Auto) 0.11 (0.00-0.50) K/uL Baso # (Auto) 0.04 (0.00-0.30) K/uL Abs Immat Gran (auto) 0.01 (0.00-0.30) K/uL Imm/Tot Granulo (auto) 0.2 % INR 1.01 (0.91-1.10) APTT 30 (23-33) Seconds Sodium 138 (135-149) mmol/L Potassium 3.5 L (3.6-5.1) mmol/L Chloride 106 (96-114) mmol/L Carbon Dioxide 24 (20-32) mmol/L BUN 21 (7-30) mg/dL Creatinine 1.0 (0.5-1.5) mg/dL Estimated Creat Clear 37.26 Estimated GFR 58 ml/min Glucose 137 H (60-115) mg/dL Calcium 10.0 (8.4-10.6) mg/dL ECG Data Attestation: I personally reviewed and interpreted this ECG as follows: (Normal sinus rhythm rate of 92 beats per minute, normal axis, normal intervals, no ST or T-wave abnormalities. EKG shows T-wave inversions in the 3 which is hard to discern if there seen similar on 05/04 but does appear similar to 01/09.) Prior ECG tracings: available for review (05/04/23, 01/09/2023) Discharge Plan Discharge Prescriptions: No Action ciprofloxacin HCl 500 mg tablet 500 mg PO BID Follow Up/Referrals: Shabnam Allred MD [Primary Care Provider] -
[2023-05-09 23:21] LABS: Slide Review Reflex No
[2023-05-09 23:31] LABS: Chloride* 106 mmol/L (96-114); Potassium* 3.5 mmol/L (3.6-5.1); Sodium* 138 mmol/L (135-149)
[2023-05-09 23:34] LABS: Blood Urea Nitrogen* 21 mg/dL (7-30); Carbon Dioxide* 24 mmol/L (20-32); Est. Creatinine Clearance* 37.26; Estimated Glomerular Filt Rate 58 ml/min; Glucose* 137 mg/dL (60-115); INR 1.01 (0.91-1.10); Partial Thromboplastin Time* 30 Seconds (23-33); Prothrombin Time 13.9 Seconds
[2023-05-10] VITALS (21 sets, daily range): BP systolic 142–164; BP diastolic 72–96; PULSE 86–111; RESP 16; TEMP 36.6–36.7; O2SAT 94–98; BMI 29.7
--- NOTE | 2023-05-10 01:57 | ED.NURSE ---
Nurse to Nurse report given to Tia. Patient going to room -[id number]
--- NOTE | 2023-05-10 03:58 | P.IMCN_ITS ---
Date of Consult Consult date: 05/09/23 Requesting Physician: Other (ER provider.) Primary Care Provider: Shabnam Allred MD Consult Narrative Narrative: [facility]INDE [facility] HOSPITALIST CONSULTATION NOTE: [facility] by the local ER provider with a request for consultation for admission support and cross coverage services for this patient. [facility] Oumar Schofield DO. Chief Complaint: Dizziness. HPI: This patient is a 77-year-old lady was in her usual state of health when around 9 PM this evening she developed a vague sense of dizziness or lightheadedness. The symptoms apparently presented briefly then resolved spontaneously. She claims similar symptoms occurred about a week ago. Her description of her symptoms did not raise suspicions of near syncope at the ER provider. Heart review of systems was fairly unremarkable with no recurrent symptoms of acute illness. She claims no history of chronic or recurring illness. She has no known history of TIAs or strokes in the past. She does have episodic anxiety. She was afebrile and had fairly normal vital signs on presentation. Her general and neurological exams were unremarkable. No signs of acute cardiopulmonary disease was found. There was no evidence of altered mentation, movement disorder, or lateralized weakness. The ER provider did consult with neurology on-call at [facility] based on the consultants recommendations the patient is being admitted for further monitoring. A CT scan of the head without contrast was performed and revealed no acute intracranial hemorrhage, acute strokes, or lateralized weakness. A CTA of the head and neck revealed no abnormal large vessel occlusions. An MRI of the head without IV contrast has been ordered for next available. The patient is being admitted to the hospital service for monitoring and care until the MRI is completed and decisions on subsequent evaluations, treatment plans, or discharge planning can be established. Refer to the ER encounter note for more details. Pertinent PMH: 1. Anxiety; nephrolithiasis. 2. Also, refer to the problem list in the ER provider's encounter note. History Reviewed In The Medical Record: Home Medications. Pertinent Social History. Recent OPD/ER Progress Notes. EXAM: Performed via an interactive video with the assistance of the bedside nurse. The Bedside RN is Tia. VS: T 97.8. P 104. RR 16. BP 159/96. SPO2 98%. FIO2 21%. GENERAL: Alert and oriented x person, time, place, and situation. Answers questions appropriately. Follows commands normally. No distress is displayed. Pain level claimed: 0/10. HEENT: NC/AT. Facial features symmetric. PERRL. EOM function WNL. No jaundice seen. No cyanosis seen. Oropharynx is visualized. No erythema or exudates seen. NECK: Supple. No JVD seen. CHEST: Chest wall is not tender. Respiratory motion appears normal. LUNGS: Breath sounds heard in all lung rivero, bilaterally. No coarse rhonchi heard. No wheezes heard. No rales heard. HEART: RRR. No murmurs heard. No gallops heard. Full, symmetric pulses palpated. ABD: Bowel sounds present in 4 quadrants. Soft. No rebound rigidity or guarding palpated. : Not examined. EXTREMITIES: No dependent leg edema seen. SKIN: No rashes seen. No primary skin lesions identified. NEUROLOGICAL: Awake. Oriented x 4. Moves all extremities purposefully or on command. Cranial nerve 2-12 function WNL. Strength symmetric. No upper extremity pronator drift seen. No tremors seen. No myoclonus seen. LAB Data: Reviewed. EKG: Reviewed. NSR, rate 92, axis normal, ST segments baseline, no acute Q wave seen. Lateral T wave inversion seen. RADIOLOGY REPORTS: Reviewed and discussed above. ASSESSMENT: 1. Vague strokelike symptoms. Thge patient is being admitted and a stroke protocol has been initiated. ER provider has been in contact with neurology on- call at [facility]. Findings on a CT scan of the head without contrast and a CTA of the head and neck are negative, at this time. An MRI of the head without contrast is pending. 2. Telemetry. 3. Continuous pulse oximetry. 4. Neurochecks every 4 hours. 5. Defer thrombolytic therapy given the paucity of signs and symptoms. PLANS: 1. [facility] provide [facility] care during this hospitalization. 2. Consider the pros and cons of daily aspirin for antiplatelet therapy. Confirm with neurology on-call if necessary. 3. Consider an echocardiogram with bubble study. RECOMMENDATIONS: 1. Consider an echocardiogram with bubble study. 2. DVT prevention steps if the patient's hospitalization is prolonged (greater than 3 midnights). 3. Consider the pros and cons of a Holter monitor study or anticoagulant assessment. I have reviewed the case in consultation. Information has been gathered from conversations with the local provider, a review of the patient's chart, and by a patient evaluation. Based on the current information and the patient's current medical condition, I certify the patient meets criteria for: [ ] Acute inpatient status with the expectation of a patient stay of more than 2 midnights, but less than 96 hrs. [ ] Swing bed. [XXX] Observation status with an expected stay of less than 2 midnights. Thank you for including [facility] care. This service is available for further assistance as requested by your care team by calling [phone]. Review of Systems Status of ROS: Reports: 6 or more systems reviewed and unremarkable except as noted in History and below Narrative: Refer to the ER encounter note. PFSH PFSH Medical History UTI (urinary tract infection) ?N39.0 - Urinary tract infection, site not specified (ICD-10) History of uric acid staghorn calculus ?Z87.442 - Personal history of urinary calculi (ICD-10) Surgical History History of cholecystectomy ?Z90.49 - Acquired absence of other specified parts of digestive tract (ICD- 10) History of extraction of renal calculus ?Z98.890 - Other specified postprocedural states (ICD-10) ?Z87.442 - Personal history of urinary calculi (ICD-10) History of section ?Z98.891 - History of uterine scar from previous surgery (ICD-10) History of fracture of wrist ?Z87.81 - Personal history of (healed) traumatic fracture (ICD-10) Social History Narrative: Non-smoker, very little EtOH, lives alone. Retired high school counselor. What is your current living situation?: I presently have a place to live Problems where you live: no known problems Problems where you live details: NA In the past 12 months, utilities in danger of being shut off: no In the past 12 mos, have been you worried that your food would run out before you had money to buy more?: never true In the past 12 mos, the food you bought just didn't last and you didn't have money to buy more?: never true Highest level of school completed/degree received: Master's degree Smoking Status: Never smoker How often do you have a drink containing alcohol: monthly or less Alcohol type: wine How many standard drinks containing alcohol do you have on a typical day: 1 or 2 How often do you have six or more drinks on one occasion: Never AUDIT-C Alcohol total score: 1 Non-prescribed substance use: denies use Caffeine: Yes (rarely) How often does anyone, including family, friends and others, physically hurt you : never How often does anyone, including family, friends and others, insult or talk down to you: never How often does anyone, including family, friends and others, threaten you with harm: never How often does anyone, including family, friends and others, scream or curse at you: never Little interest or pleasure in doing things: not at all Feeling down, depressed, or hopeless: not at all Are you using contraception or practicing any form of control: No service: No Meds Home Medications and Allergies Home Medications Medication Instructions Recorded Confirmed Type ciprofloxacin HCl 500 mg tablet 500 mg PO BID 05/09/23 05/09/23 History Allergies Allergy/AdvReac Type Severity Reaction Status Date / Time codeine Allergy Verified 04/04/23 12:27 Sulfa (Sulfonamide Allergy Verified 04/04/23 12:27 Antibiotics) Exam Narrative: Exam Narrative: See consult note above. Const: Vital Signs, click to edit/add: Vital Signs - 24 hr 05/09/23 22:44 05/09/23 23:07 05/09/23 23:18 Temperature 97.2 F L Pulse Rate Pulse Rate [Left P ulse Oximeter] Pulse Rate [Right Pulse Oximeter] 95 Respiratory Rate 16 Blood Pressure 165/81 H Blood Pressure [Ri ght Arm] Blood Pressure [Ri ght Upper Arm] 167/80 H Pulse Oximetry 99 96 Oxygen Delivery Me thod Room Air 05/09/23 23:29 05/09/23 23:30 05/09/23 23:36 Temperature Pulse Rate 100 100 95 Pulse Rate [Left P ulse Oximeter] Pulse Rate [Right Pulse Oximeter] Respiratory Rate Blood Pressure 154/79 H Blood Pressure [Ri ght Arm] Blood Pressure [Ri ght Upper Arm] Pulse Oximetry 92 98 99 Oxygen Delivery Me thod 05/09/23 23:37 05/09/23 23:45 05/09/23 23:47 Temperature Pulse Rate 95 94 Pulse Rate [Left P ulse Oximeter] Pulse Rate [Right Pulse Oximeter] Respiratory Rate Blood Pressure 160/82 H Blood Pressure [Ri ght Arm] Blood Pressure [Ri ght Upper Arm] Pulse Oximetry 98 98 Oxygen Delivery Me thod 05/10/23 00:00 05/10/23 00:02 05/10/23 00:02 Temperature Pulse Rate 97 100 100 Pulse Rate [Left P ulse Oximeter] Pulse Rate [Right Pulse Oximeter] Respiratory Rate Blood Pressure 145/72 H 145/72 H Blood Pressure [Ri ght Arm] Blood Pressure [Ri ght Upper Arm] Pulse Oximetry 98 97 97 Oxygen Delivery Me thod 05/10/23 00:02 05/10/23 00:02 05/10/23 00:03 Temperature Pulse Rate 100 100 98 Pulse Rate [Left P ulse Oximeter] Pulse Rate [Right Pulse Oximeter] Respiratory Rate Blood Pressure 145/72 H 145/72 H Blood Pressure [Ri ght Arm] Blood Pressure [Ri ght Upper Arm] Pulse Oximetry 97 97 97 Oxygen Delivery Me thod 05/10/23 00:31 05/10/23 00:32 05/10/23 00:45 Temperature Pulse Rate 102 H 101 H 101 H Pulse Rate [Left P ulse Oximeter] Pulse Rate [Right Pulse Oximeter] Respiratory Rate Blood Pressure 153/96 H Blood Pressure [Ri ght Arm] Blood Pressure [Ri ght Upper Arm] Pulse Oximetry 96 97 96 Oxygen Delivery Me thod 05/10/23 00:46 05/10/23 01:00 05/10/23 01:02 Temperature Pulse Rate 102 H 101 H 102 H Pulse Rate [Left P ulse Oximeter] Pulse Rate [Right Pulse Oximeter] Respiratory Rate Blood Pressure 150/81 H 146/83 H Blood Pressure [Ri ght Arm] Blood Pressure [Ri ght Upper Arm] Pulse Oximetry 94 97 96 Oxygen Delivery Me thod 05/10/23 01:03 05/10/23 01:08 05/10/23 01:15 Temperature Pulse Rate 108 H 111 H 107 H Pulse Rate [Left P ulse Oximeter] Pulse Rate [Right Pulse Oximeter] Respiratory Rate Blood Pressure 164/91 H Blood Pressure [Ri ght Arm] Blood Pressure [Ri ght Upper Arm] Pulse Oximetry 96 98 98 Oxygen Delivery Me thod 05/10/23 01:17 05/10/23 01:30 05/10/23 01:32 Temperature Pulse Rate 107 H 94 94 Pulse Rate [Left P ulse Oximeter] Pulse Rate [Right Pulse Oximeter] Respiratory Rate Blood Pressure 154/90 H 156/84 H Blood Pressure [Ri ght Arm] Blood Pressure [Ri ght Upper Arm] Pulse Oximetry 98 97 97 Oxygen Delivery Me thod 05/10/23 01:45 05/10/23 01:47 05/10/23 02:20 Temperature 97.8 F Pulse Rate 100 104 H Pulse Rate [Left P ulse Oximeter] 104 H Pulse Rate [Right Pulse Oximeter] Respiratory Rate 16 Blood Pressure 159/83 H Blood Pressure [Ri ght Arm] 159/96 H Blood Pressure [Ri ght Upper Arm] Pulse Oximetry 96 97 98 Oxygen Delivery Nc thod Room Air 05/10/23 02:20 Temperature Pulse Rate Pulse Rate [Left P ulse Oximeter] Pulse Rate [Right Pulse Oximeter] Respiratory Rate Blood Pressure Blood Pressure [Ri ght Arm] Blood Pressure [Ri ght Upper Arm] Pulse Oximetry 98 Oxygen Delivery Me thod Room Air Labs Labs: Short CBC 05/09/23 Range/Units 23:10 WBC 6.44 (4.50-11.00) K/uL Hgb 13.6 (12.0-16.0) gm/dL Hct 41.7 (33.0-51.0) % Plt Count 232 (140-440) K/uL BMP 05/09/23 23:10 Sodium 138 Potassium 3.5 L Chloride 106 Carbon Dioxide 24 BUN 21 Creatinine 1.0 Glucose 137 H Calcium 10.0 Assessment and Plan Assessment and plan (1) TIA (transient ischemic attack): Status: Acute (2) Light-headed: Status: Acute Plan See consult note above for assessment and plans.
--- NOTE | 2023-05-10 06:01 | PC.NURSE ---
Patient admitted to floor at 0203 with vertigo. Denies any current dizziness, per patient the episode lasted 15 minutes starting at 9pm and has resolved. Neuros intact, upper and lower extremities equal in strength. Lung sounds clear. Bowel sounds active. Patient denies any falls or head injury. Alert and oriented x 4. Ambulates independently in room.
--- NOTE | 2023-05-10 07:03 | CRLHL7_ITS ---
For Patients: As a result of the Century Cures Act, medical imaging exams and procedure reports are released immediately into your electronic medical record. You may view this report before your referring provider. If you have questions, please contact your health care provider. INDICATION: Dizziness. TECHNIQUE: Multiplanar multisequence noncontrast MR images acquired through the brain. COMPARISON: CT brain 05/09/2023. FINDINGS: Prominence of the ventricles and sulci compatible with minimal diffuse cerebral volume loss. No mass effect or midline shift. Scattered FLAIR hyperintensities in the supratentorial white matter and gianfranco, typical for mild chronic microvascular ischemic changes. No diffusion restriction to suggest acute infarction. No intracranial hemorrhage or pathologic extra-axial fluid collection. The major arterial flow voids of the skullbase are preserved. Hyperostosis frontalis interna. The globes are symmetric. The paranasal sinuses are well aerated. Very small right maxillary sinus retention cyst. Trace left mastoid effusion. IMPRESSION: 1. No acute infarction, mass effect, or intracranial hemorrhage. 2. Mild chronic microvascular ischemic changes. Dictated by Rolando Vazquez MD @ 05/10/2023 1:15:27 PM (Electronically Signed)
[2023-05-10 09:49] LABS: Hemoglobin A1C* 5.47 % (0-5.6)
[2023-05-10] MEDS: CIPROFLOXACIN 500 MG TABLET PO (12:43)
--- NOTE | 2023-05-10 13:22 | PM.DS1 ---
DS: Providers Provider Date Seen: 05/10/23 Date of admission: 05/10/23 01:59 Primary care physician: Shabnam Allred MD Admitting Clinician: Oumar Schofield DO Consults: OT and PT Attending Physician on discharge: Danna Zee MD Date of Discharge: 05/10/23 DS: Diagnosis Discharge Diagnosis (1) Recurrent UTI: Status: Acute Problem details: - finishing course of Cipro for pansensitive E Coli during stay, symptoms improved - discussed topical estrogen as a preventative option; will review with PCP as an outpatient (2) TIA (transient ischemic attack): Status: Acute Problem details: - dizziness/vertigo as presenting complaint - negative Orthostasis, cleared by therapies - reassuring head CT, CTA, MRI (3) Light-headed: Status: Acute Problem details: - presenting symptom DS: Summary Hospital Course Hospital Course: Kailey is a very pleasant 77-year-old female who presented to the hospital on 05/10 for two separate, self resolved episodes of dizziness/vertigo in the past week. She recently had a UTI (history of these, culture revealed pansensitive E coli), treated with Cipro (was on day 6 on admission). Initial workup revealed a negative head CT, negative head and neck CTA, reassuring MRI. Initial read of TTE is wnl (formal Cardiology read pending). Symptoms cleared during stay and no needs identified by PT. She will see her PCP early next week; strict return precautions discussed in the meantime. Status at Discharge Functional status at discharge: independent ambulation Overall status at discharge: patient is back to baseline Time Spent with Patient Time attestation: Total time spent providing and/or coordinating discharge services: Time spent: Greater than 30 minutes Specific discharge activities: Medication reconciliation, education, review and interpretation of test results Exam Narrative: Exam Narrative: GEN: Alert and oriented, nontoxic HEENT: PERRL and EOMIs bilaterally, no scleral icterus CV: RRR, No concerning murmurs R: LCTA bilaterally without concerning wheezing, air movement adequate Ext: wwp, no concerning edema Skin: No concerning skin lesions or rashes on exposed skin Neuro: No facial droop, no focal deficits, no resting tremor Psych: Appropriate Const: Vital Signs, click to edit/add: Vital Signs - 24 hr 05/09/23 22:44 05/09/23 23:07 05/09/23 23:18 Temperature 97.2 F L Pulse Rate Pulse Rate [Left P ulse Oximeter] Pulse Rate [Right Pulse Oximeter] 95 Respiratory Rate 16 Blood Pressure 165/81 H Blood Pressure [Ri ght Arm] Blood Pressure [Ri ght Upper Arm] 167/80 H Pulse Oximetry 99 96 Oxygen Delivery Me thod Room Air 05/09/23 23:29 05/09/23 23:30 05/09/23 23:36 Temperature Pulse Rate 100 100 95 Pulse Rate [Left P ulse Oximeter] Pulse Rate [Right Pulse Oximeter] Respiratory Rate Blood Pressure 154/79 H Blood Pressure [Ri ght Arm] Blood Pressure [Ri ght Upper Arm] Pulse Oximetry 92 98 99 Oxygen Delivery Me od 05/09/23 23:37 05/09/23 23:45 05/09/23 23:47 Temperature Pulse Rate 95 94 Pulse Rate [Left P ulse Oximeter] Pulse Rate [Right Pulse Oximeter] Respiratory Rate Blood Pressure 160/82 H Blood Pressure [Ri ght Arm] Blood Pressure [Ri ght Upper Arm] Pulse Oximetry 98 98 Oxygen Delivery Me od 05/10/23 00:00 05/10/23 00:02 05/10/23 00:02 Temperature Pulse Rate 97 100 100 Pulse Rate [Left P ulse Oximeter] Pulse Rate [Right Pulse Oximeter] Respiratory Rate Blood Pressure 145/72 H 145/72 H Blood Pressure [Ri ght Arm] Blood Pressure [Ri ght Upper Arm] Pulse Oximetry 98 97 97 Oxygen Delivery Me od 05/10/23 00:02 05/10/23 00:02 05/10/23 00:03 Temperature Pulse Rate 100 100 98 Pulse Rate [Left P ulse Oximeter] Pulse Rate [Right Pulse Oximeter] Respiratory Rate Blood Pressure 145/72 H 145/72 H Blood Pressure [Ri ght Arm] Blood Pressure [Ri ght Upper Arm] Pulse Oximetry 97 97 97 Oxygen Delivery Me thod 05/10/23 00:31 05/10/23 00:32 05/10/23 00:45 Temperature Pulse Rate 102 H 101 H 101 H Pulse Rate [Left P ulse Oximeter] Pulse Rate [Right Pulse Oximeter] Respiratory Rate Blood Pressure 153/96 H Blood Pressure [Ri ght Arm] Blood Pressure [Ri ght Upper Arm] Pulse Oximetry 96 97 96 Oxygen Delivery Me thod 05/10/23 00:46 05/10/23 01:00 05/10/23 01:02 Temperature Pulse Rate 102 H 101 H 102 H Pulse Rate [Left P ulse Oximeter] Pulse Rate [Right Pulse Oximeter] Respiratory Rate Blood Pressure 150/81 H 146/83 H Blood Pressure [Ri ght Arm] Blood Pressure [Ri ght Upper Arm] Pulse Oximetry 94 97 96 Oxygen Delivery Me thod 05/10/23 01:03 05/10/23 01:08 05/10/23 01:15 Temperature Pulse Rate 108 H 111 H 107 H Pulse Rate [Left P ulse Oximeter] Pulse Rate [Right Pulse Oximeter] Respiratory Rate Blood Pressure 164/91 H Blood Pressure [Ri ght Arm] Blood Pressure [Ri ght Upper Arm] Pulse Oximetry 96 98 98 Oxygen Delivery Me thod 05/10/23 01:17 05/10/23 01:30 05/10/23 01:32 Temperature Pulse Rate 107 H 94 94 Pulse Rate [Left P ulse Oximeter] Pulse Rate [Right Pulse Oximeter] Respiratory Rate Blood Pressure 154/90 H 156/84 H Blood Pressure [Ri ght Arm] Blood Pressure [Ri ght Upper Arm] Pulse Oximetry 98 97 97 Oxygen Delivery Me thod 05/10/23 01:45 05/10/23 01:47 05/10/23 02:20 Temperature 97.8 F Pulse Rate 100 104 H Pulse Rate [Left P ulse Oximeter] 104 H Pulse Rate [Right Pulse Oximeter] Respiratory Rate 16 Blood Pressure 159/83 H Blood Pressure [Ri ght Arm] 159/96 H Blood Pressure [Ri ght Upper Arm] Pulse Oximetry 96 97 98 Oxygen Delivery Me thod Room Air 05/10/23 02:20 05/10/23 03:00 05/10/23 07:00 Temperature 97.8 F Pulse Rate Pulse Rate [Left P ulse Oximeter] 104 H 86 Pulse Rate [Right Pulse Oximeter] Respiratory Rate 16 16 Blood Pressure Blood Pressure [Ri ght Arm] 159/96 H Blood Pressure [Ri ght Upper Arm] Pulse Oximetry 98 98 Oxygen Delivery Me thod Room Air Room Air 05/10/23 07:00 05/10/23 11:00 Temperature 98.1 F 98.0 F Pulse Rate Pulse Rate [Left P ulse Oximeter] 86 87 Pulse Rate [Right Pulse Oximeter] Respiratory Rate 16 16 Blood Pressure Blood Pressure [Ri ght Arm] 158/76 H 142/94 H Blood Pressure [Ri ght Upper Arm] Pulse Oximetry 95 95 Oxygen Delivery Me thod Room Air Room Air DS: Data Data Completed and Pending Completed studies during hospitalization: Procedures Inspection of Gallbladder, Percutaneous Endoscopic Approach (01/15/23) Resection of Gallbladder, Open Approach (01/15/23) Labs on day of discharge: Labs from last 24 hours 05/10/23 05/10/23 05/10/23 23:10 09:16 07:19 WBC RBC Hgb Hct MCV MCH MCHC RDW Coeff of Brigid Plt Count Neut % (Auto) Lymph % (Auto) [place] % (Auto) Eos % (Auto) Baso % (Auto) Neut # (Auto) Lymph # (Auto) [place] # (Auto) Eos # (Auto) Baso # (Auto) Abs Immat Gran (auto) Imm/Tot Granulo (auto) INR APTT Sodium Potassium Chloride Carbon Dioxide BUN Creatinine Estimated Creat Clear Estimated GFR Glucose Hemoglobin A1c 5.47 Calcium TSH 3.670 Lab Acknowledgement Test Added Test Added 05/09/23 23:10 WBC 6.44 RBC 4.54 Hgb 13.6 Hct 41.7 MCV 92 MCH 30 MCHC 33 RDW Coeff of Brigid 12.4 Plt Count 232 Neut % (Auto) 61.8 Lymph % (Auto) 29.0 [place] % (Auto) 6.7 Eos % (Auto) 1.7 Baso % (Auto) 0.6 Neut # (Auto) 3.98 Lymph # (Auto) 1.87 [place] # (Auto) 0.40 Eos # (Auto) 0.11 Baso # (Auto) 0.04 Abs Immat Gran (auto) 0.01 Imm/Tot Granulo (auto) 0.2 INR 1.01 APTT 30 Sodium 138 Potassium 3.5 L Chloride 106 Carbon Dioxide 24 BUN 21 Creatinine 1.0 Estimated Creat Clear 37.26 Estimated GFR 58 Glucose 137 H Hemoglobin A1c Calcium 10.0 TSH Lab Acknowledgement Discharge Plan Discharge Disposition: Home, Self-Care Date of Admission: 05/10/23 01:59 Attending Provider on Discharge: Danna Zee Primary Care Provider: Shabnam Allred Condition: Improved Anticipated Discharge Date/Time: 05/10/23 13:59 Discharge Medications: Continued ciprofloxacin HCl 500 mg tablet 500 mg PO BID Discharge Orders: Discharge Order (Routine); Ordered 05/10/23 Ordered By: Danna Zee Additional Instructions: Finish the last dose of Cipro, then stop. Keep an eye on symptoms - not a bad idea to check your blood pressure and pulse if symptoms recur. See Dr. Allred next week for a followup and to go over results. Activity Level: Activity as Tolerated Discharge Diet: Regular Follow Up Appointments: Shabnam Allred MD [Primary Care Provider] - (appt next week for hospital d/c followup) Forms: [employer] Info Instructions
--- NOTE | 2023-05-10 14:29 | REH.OT ---
OT: Order received, chart reviewed, attempted x2 and patient with other discipline, then out for MRI. Returned and MD reports to discontinue order as patient cleared and to discharge without need for OT.
--- NOTE | 2023-05-10 14:30 | PC.NURSE ---
AVS reviewed. All concerns addressed. Patient vitally stable. Patient discharged to home.
== END 2023-05-10 14:30 | disposition home or self-care (01) ==
LOC: ED 05-10 01:41 → MEDSURG 05-10 14:01
PROVIDERS: Admitting Provider Family Medicine; Emergency Provider Student in an Organized Health Care Education/Training Program; PCP Internal Medicine; Visit Provider Family Medicine
DX: N39.0 Urinary tract infection, site not specified (principal); G45.9 Transient cerebral ischemic attack, unspecified; R42 Dizziness and giddiness
CPT/HCPCS: 36415; 70450; 70496; 70498; 70551; 80048; 82962; 83036; 84443; 85025; 85610; 85730; 93005; 93306; 94761; 97116; 97161; 99283; 99285; 99291; A9270; G0378; Q9967

== ENCOUNTER 2023-06-03 11:55 | Outpatient (CLI) | payer MEDICARE, BC, SELFPAY | END 2023-06-03 11:56 | disposition home or self-care (01) | LOC: NFLDREF 06-04 17:53 | PROVIDERS: PCP Internal Medicine; Referring Provider Internal Medicine; Visit Provider Nurse Practitioner Family | DX: R30.0 Dysuria (principal); N30.01 Acute cystitis with hematuria; R03.0 Elevated blood-pressure reading, without diagnosis of hypertension | CPT/HCPCS: 87086; 87186 ==

== ENCOUNTER 2023-06-18 15:42 | Outpatient (CLI) | payer MEDICARE, BC, SELFPAY | END 2023-06-18 15:43 | disposition home or self-care (01) | LOC: NFLDREF 06-19 08:23 | PROVIDERS: PCP Internal Medicine; Referring Provider Internal Medicine; Visit Provider Internal Medicine | DX: R30.0 Dysuria (principal); N30.00 Acute cystitis without hematuria; N30.01 Acute cystitis with hematuria | CPT/HCPCS: 87086; 87186 ==

== ENCOUNTER 2023-09-17 14:26 | Outpatient (CLI) | payer MEDICARE, BC, SELFPAY | END 2023-09-17 14:27 | disposition home or self-care (01) | LOC: NFLDREF 09-19 08:06 | PROVIDERS: PCP Internal Medicine; Referring Provider Internal Medicine; Visit Provider Family Medicine | DX: R30.0 Dysuria (principal); N39.0 Urinary tract infection, site not specified | CPT/HCPCS: 87086 ==

== ENCOUNTER 2023-12-03 09:45 | Emergency (ER) | payer MEDICARE, BC, SELFPAY ==
[2023-12-03] VITALS (11 sets, daily range): BP systolic 138–167; BP diastolic 76–90; PULSE 89–114; RESP 18; TEMP 35.6; O2SAT 94–99; BMI 28.9
--- NOTE | 2023-12-03 10:37 | CT_ITS ---
Final Report Patient: BENJAMIN PENDLETON Facility:?[facility] Patient ID:?[id number] Site Patient ID:?[id number]. Site :?[id number] Study:?CT Head WITHOUT-12/03/2023 10:58:34 AM Ordering Physician:LINDA Final Report: INDICATION: Dizziness COMPARISON: None TECHNIQUE: CT examination of the head was performed as axial sections without intravenous contrast. Images were obtained from the vertex of the skull through the skull base. Please note that all CT scans at this facility use dose modulation, iterative reconstruction, and/or weight-based dosing when appropriate to reduce radiation dose to as low as reasonably achievable. FINDINGS: The brain shows no sign of mass lesion, mass effect, hemorrhage, or edema. Sulci and ventricles are of normal caliber for patient age. Minor white matter changes probably small-vessel ischemic in nature. The visualized portions of the orbits are normal in appearance. The osseous structures are normal in appearance with no sign of abnormality in the skull base or calvarium. IMPRESSION: Minor age-appropriate involutional changes. No acute focal finding and no specific visible cause for dizziness Please note that all CT scans at this facility use dose modulation, iterative reconstruction, and/or weight-based dosing when appropriate to reduce radiation dose to as low as reasonably achievable. Dictated by Osorio Carvalho MD @ 12/03/2023 11:16:00 AM (Electronic Signature)
--- NOTE | 2023-12-03 10:38 | ED.NURSE ---
patient is feeling dizzy and felt going to pass out. brought to room lying on the bed with friend present in the room. with movement patient feels increased dizziness.
--- OUTSIDE RECORDS SUMMARY | 2023-12-03 10:46 | XMS_ITS | Clinical Summary ---
Author Name Unknown Organization [facility] Address [place], [place] [address] Care Team Providers Care Cracker Sprayer Name Role Phone Shabnam Allred MD Primary Care Provider [phone] Allergies Active Allergy Reactions Criticality Noted Date Comments Codeine *Unknown - Childhood Rxn 01/17/2023 Sulfa (Sulfonamide Antibiotics) *Unknown - Childhood Rxn 01/17/2023 Medications Medication Sig Dispensed Refills Start Date End Date Status amoxicillin-clavulanat e 875-125 mg tablet (AUGMENTIN) Take 1 Tablet by mouth two times daily with meals. 0 Active Social History Tobacco Use Types Packs/Day Years Used Date Smoking Tobacco: Never Passive Smoke Exposure: Never Smokeless Tobacco: Never Tobacco Cessation:Counseling Given: Not Answered Alcohol Use Standard Drinks/Week Comments Yes 0 (1 standard drink = 0.6 oz pur e alcohol) rare Sex and Gender Information Value Date Recorded Sex Assigned at Not on file Gender Identity Not on file Sexual Orientation Not on file Obstetrics History Last Filed Vital Signs Vital Sign Reading Time Taken Comments Blood Pressure 154/75 02/13/2023 12:10 PM CDT Pulse 93 02/13/2023 12:10 PM CDT Temperature 36.7 ??C (98.1 ??F) 02/13/2023 11:30 AM C DT Respiratory Rate 16 02/13/2023 12:10 PM CDT Oxygen Saturation 97% 02/13/2023 12:10 PM CDT Inhaled Oxygen Concentration - - Weight 73 kg (161 lb) 01/17/2023 2:25 PM CDT Height 157.5 cm (5' 2) 01/17/2023 2:25 PM CDT Body Mass Index 29.45 01/17/2023 2:25 PM CDT Plan of Treatment Health Maintenance Due Date Last Done Comments Tdap 1956 Depression screening for age 12+ 1957 BMI (ht and wt on same day) for age 18+ 1963 Hepatitis C screening for ag e 18-79 1963 Tetanus booster 1965 Zoster (shingles) series for age 50+ (1 of 2) 1995 DEXA/DXA scan for age 65+ 2010 Pneumococcal series for age 65+ (1 of 1 - PCV) 2010 COVID-19 vaccine series (2022-24 season) 2023 07/31/2022, 02/15/2022, 07/13/2021, Additional history exists Influenza for age 65+ 06/14/2023 Medical Devices Implanted Type Area Bulk Driver Device Identifier Shelf Expiration Date Model / Serial / Lot Stent Biliary [id number] Advanix Duodenal Bend Plst - [id number] Implanted:Qty: 1 on 01/18/2023 by Magno Phelps MD at [facility] N/A: Common Bile Duct [facility] 09/23/2024 [id number] / / [id number] Advance Directives Latest Code Status on File Code Status Date Activated Date Inactivated Comments Full Code 02/13/2023 10:31 AM 02/13/2023 2:26 PM Question Answer Comments Code Status Discussion: Unable to Assess Preferences, Provider to review later Code Status History Code Status Date Activated Date Inactivated Comments Full Code 01/18/2023 7:22 AM 01/18/2023 12:55 PM Question Answer Comments Code Status Discussion: Unable to Assess Preferences, Provider to review later Care Teams Cracker Sprayer Relationship Specialty Start Date End Date Shabnam Allred MD [address] [place] [address] PCP - General Internal Medicine 01/17/23
[2023-12-03 10:59] LABS: Basophils Absolute Auto 0.02 K/uL (0.00-0.30); Basophils Percent Auto 0.3 % (0.0-3.0); Eosinophils Absolute Auto 0.03 K/uL (0.00-0.50); Eosinophils Percent Auto 0.5 % (0.0-7.0); Hematocrit 45.6 % (33.0-51.0); Hemoglobin* 14.8 gm/dL (12.0-16.0); Immature Granulocytes Abs Auto 0.01 K/uL (0.00-0.30); Immature Granulocytes Pct Auto 0.2 %; Lymphocytes Absolute Auto 1.27 K/uL (0.90-2.90); Mean Corpuscular HGB Conc 33 gm/dL (32-36); Mean Corpuscular Hemoglobin 30 pg (26-34); Mean Corpuscular Volume 93 fL (80-100); Monocytes Percent Auto 4.4 % (0.0-11.0); Neutrophils Percent Auto 74.6 % (42.0-72.0); Platelet Count* 240 K/uL (140-440); RDW Coefficient of Variation % 12.9 % (11.5-15.5); Red Blood Count 4.93 m/uL (4.00-5.20); White Blood Count* 6.36 K/uL (4.50-11.00)
[2023-12-03] MEDS: ONDANSETRON 2 MG/ML inj 4 MG IVP (11:01)
[2023-12-03] MEDS: LACTATED RINGERS 1000 ML 1,000 ML IV (11:01)
[2023-12-03] MEDS: MECLIZINE HCL 25 MG TABLET PO (11:01)
[2023-12-03 11:05] LABS: Slide Review Reflex No
[2023-12-03 11:19] LABS: Albumin* 4.4 g/dL (3.3-5.0); Chloride* 108 mmol/L (96-114); Potassium* 3.9 mmol/L (3.6-5.1); Sodium* 136 mmol/L (135-149)
[2023-12-03 11:21] LABS: Creatinine* 0.8 mg/dL (0.5-1.5); Est. Creatinine Clearance* 36.67; Estimated Glomerular Filt Rate 75 ml/min
[2023-12-03 11:22] LABS: Alanine Aminotransferase* 15 U/L (4-35); Alkaline Phosphatase* 110 U/L (40-150); Anion Gap 7 mEq/L (7-15); Aspartate Amino Transferase* 21 U/L (12-35); Bilirubin Total* 0.9 mg/dL (0.1-1.5); Blood Urea Nitrogen* 22 mg/dL (7-30); Calcium* 10.4 mg/dL (8.4-10.6); Carbon Dioxide* 21 mmol/L (20-32); Glucose* 179 mg/dL (60-115)
[2023-12-03 11:23] LABS: Magnesium* 2.2 mg/dL (1.5-2.6)
[2023-12-03 11:25] LABS: Appearance Urine Turbid (Clear); Bilirubin Urine Negative (Negative); Blood Urine 2+ (Negative); Color Urine Yellow (Yellow); Glucose Urine Negative (Negative); Ketones Urine Negative (Negative); Leukocyte Esterase Urine 3+ (Negative); Nitrite Urine Positive (Negative); Protein Urine 2+ (Negative); Specific Gravity Urine 1.025 (1.000-1.030); Urobilinogen Urine 0.2 (0.2-1.0); pH Urine 6.5 (5.0-8.5)
[2023-12-03 11:46] LABS: Bacteria Urine Many; RBC Urine 50-100 (0-2); Squamous Epithelial Cell Urine Moderate (None-Few); WBC Urine 50-100 (0-5)
--- NOTE | 2023-12-03 11:49 | ED_ITS ---
HPI - Dizziness General Date Seen: 12/03/23 Chief Complaint: Dizziness/Vertigo Stated Complaint: dizzyness, lightheaded Time Seen by Provider: 12/03/23 10:28 Source: patient Mode of arrival: ambulatory Limitations: no limitations History of Present Illness HPI Narrative: Patient is a 78-year-old female presenting to the emergency department for dizziness. She states she noticed it 1st this morning around 08:30. Symptoms she says seems worse with movement. She felt like she is going to fall over in said she cannot say for certain if it felt like the room was spinning or like she was on a boat. Sitting down in bed now she says symptoms have improved significantly. Denies feeling like she had to pass out. Has been eating and drinking well. Is not feeling dehydrated. Denies headache, chest pain, shortness of breath, vision changes, abdominal pain, diarrhea, constipation, weakness, numbness. Denies ever having symptoms like this before. No history of strokes. No other medical problems noted. Related Data Previous Rx's Medication Instructions Recorded cephalexin 250 mg capsule 250 mg PO QID #20 caps 12/03/23 meclizine 25 mg tablet 25 mg PO QID PRN dizziness #20 tabs 12/03/23 ondansetron 4 mg disintegrating 4 mg PO Q6H #20 tabs 12/03/23 tablet Allergies Allergy/AdvReac Type Severity Reaction Status Date / Time codeine Allergy Verified 12/03/23 10:05 Sulfa (Sulfonamide Allergy Verified 12/03/23 10:05 Antibiotics) Review of Systems Status of ROS: Reports: 10 or more systems reviewed and unremarkable except as noted in History and below PFSH PFSH Medical History Recurrent UTI ?N39.0 - Urinary tract infection, site not specified (ICD-10) History of uric acid staghorn calculus ?Z87.442 - Personal history of urinary calculi (ICD-10) Surgical History History of cholecystectomy ?Z90.49 - Acquired absence of other specified parts of digestive tract (ICD- 10) History of extraction of renal calculus ?Z98.890 - Other specified postprocedural states (ICD-10) ?Z87.442 - Personal history of urinary calculi (ICD-10) History of section ?Z98.891 - History of uterine scar from previous surgery (ICD-10) History of fracture of wrist ?Z87.81 - Personal history of (healed) traumatic fracture (ICD-10) Social History Narrative: Non-smoker, very little EtOH, lives alone. Retired high school counselor. What is your current living situation?: I presently have a place to live Problems where you live: no known problems Problems where you live details: NA In the past 12 months, utilities in danger of being shut off: no In past 12 months, lack of transportation kept you from medical appts, meetings, work, or getting things needed for daily living: no In the past 12 mos, have been you worried that your food would run out before you had money to buy more?: never true In the past 12 mos, the food you bought just didn't last and you didn't have money to buy more?: never true Highest level of school completed/degree received: Master's degree Smoking Status: Never smoker How often do you have a drink containing alcohol: monthly or less Alcohol type: wine How many standard drinks containing alcohol do you have on a typical day: 1 or 2 How often do you have six or more drinks on one occasion: Never AUDIT-C Alcohol total score: 1 Non-prescribed substance use: denies use Caffeine: Yes (rarely) How often does anyone, including family, friends and others, physically hurt you : never How often does anyone, including family, friends and others, insult or talk down to you: never How often does anyone, including family, friends and others, threaten you with harm: never How often does anyone, including family, friends and others, scream or curse at you: never Little interest or pleasure in doing things: not at all Feeling down, depressed, or hopeless: not at all Are you using contraception or practicing any form of control: No service: No Exam Narrative: Exam Narrative: Const: Well-nourished, Well-developed, in mild distress Eyes: PERRL, no conjunctival injection, and symmetrical lids HENT: Atraumatic external nose and ears. Moist mucous membranes. Neck: Symmetric, trachea midline, No thyromegaly. CVS: RRR, No murmurs or gallops. Peripheral pulses 2+ and equal in all extremities RESP: Unlabored respiratory effort. Clear to auscultation bilaterally. GI: Nontender/Nondistended, No rebound or guarding. MSK:Extremities w/o deformity, Normal Active ROM Skin: Warm, Dry. No rashes or lesions. Neuro: Normal Muscle tone, Cranial nerves 2-12 grossly intact, normal [id number], normal [id number], normal gait, normal strength 5/5 upper lower extremities bilaterally, normal sensation upper and lower extremities bilaterally, normal rapid alternating movements. Psych: Awake, Alert, & Oriented x3. Appropriate mood and affect. Const: Vital Signs, click to edit/add: Vital Signs - 24 hr 12/03/23 10:01 12/03/23 10:29 12/03/23 10:30 Temperature 96.1 F L Pulse Rate 95 98 Pulse Rate [Pulse Oximeter] 114 H Respiratory Rate 18 Blood Pressure Blood Pressure [Ri ght Upper Arm] 167/90 H Pulse Oximetry 99 94 95 Oxygen Delivery Me thod Room Air 12/03/23 10:32 12/03/23 10:45 12/03/23 11:00 Temperature Pulse Rate 95 89 90 Pulse Rate [Pulse Oximeter] Respiratory Rate Blood Pressure 152/90 H Blood Pressure [Ri ght Upper Arm] Pulse Oximetry 95 95 95 Oxygen Delivery Me thod 12/03/23 11:01 12/03/23 11:15 12/03/23 11:30 Temperature Pulse Rate 90 90 94 Pulse Rate [Pulse Oximeter] Respiratory Rate Blood Pressure 138/76 Blood Pressure [Ri ght Upper Arm] Pulse Oximetry 94 99 99 Oxygen Delivery Me thod 12/03/23 11:35 12/03/23 11:45 Temperature Pulse Rate 92 90 Pulse Rate [Pulse Oximeter] Respiratory Rate Blood Pressure Blood Pressure [Ri ght Upper Arm] Pulse Oximetry 99 98 Oxygen Delivery Me thod Course Vital Signs Vital signs: Initial Vital Signs Temperature 96.1 F L 12/03/23 10:01 Temperature Source Temporal Artery Scan 12/03/23 10:01 Pulse Rate 114 H 12/03/23 10:01 Respiratory Rate 18 12/03/23 10:01 Blood Pressure 167/90 H 12/03/23 10:01 Blood Pressure Mean 115 H 12/03/23 10:01 Blood Pressure Position Sitting 12/03/23 10:01 Pulse Oximetry 99 12/03/23 10:01 Oxygen Delivery Method Room Air 12/03/23 10:01 Vital Signs Temperature 96.1 F L 12/03/23 10:01 Pulse Rate 114 H 12/03/23 10:01 Respiratory Rate 18 12/03/23 10:01 Blood Pressure 167/90 H 12/03/23 10:01 Pulse Oximetry 99 12/03/23 10:01 Oxygen Delivery Method Room Air 12/03/23 10:01 Temperature 96.1 F L 12/03/23 10:01 Pulse Rate 90 12/03/23 11:45 Respiratory Rate 18 12/03/23 10:01 Blood Pressure 138/76 12/03/23 11:01 Pulse Oximetry 98 12/03/23 11:45 Oxygen Delivery Method Room Air 12/03/23 10:01 Medications Administered Medications: Discontinued Medications Generic Name Dose Route Start Last Admin Trade Name Freq PRN Reason Stop Dose Admin Lactated Ringer's 1,000 mls @ 1,000 mls/hr 12/03/23 10:36 12/03/23 11:01 Lactated Ringers 1000 Ml IV 12/03/23 11:35 1,000 mls/hr .Q1H ONE Administration Meclizine HCl 25 mg 12/03/23 10:36 12/03/23 11:01 Meclizine Hcl 25 Mg Tablet PO 12/03/23 10:37 25 mg ONCE ONE Administration Ondansetron HCl 4 mg 12/03/23 10:36 12/03/23 11:01 Ondansetron 2 Mg/Ml Inj IVP 12/03/23 10:37 4 mg ONCE ONE Administration MDM - Dizziness MDM Narrative Medical decision making narrative: Patient is a 78-year-old female presenting to the emergency department for dizziness. She was asymptomatic by time I spoke to her and she was laying in bed. Symptoms worsened with head movement when I was doing her neuro exam. This makes me believe this is more peripheral in nature. Most order head CT. Has not had any head trauma that she is aware of. Also order CBC, troponin, urinalysis, CMP, magnesium, COVID/flu/RSV. She was getting nauseated with the dizziness that occurred after head movement and Zofran will be given. Also gave her meclizine in the L of fluids. Head CT head the myself in the radiologist showed no concerning acute abnormalities. To the EKG and troponin showed no concerning findings. This seems very unlikely to be cardiac related. Lab work returns showing no concerning abnormalities other than she appears to have a urinary tract i nfection. She has had issues with UTIs in the past. She is not currently having any urinary symptoms and a was a contaminated sample. Despite this considering her age and symptoms of vertigo it is think it is reasonable to start her on antibiotics as she does have nits or eggs and are small white blood cells and leukocyte esterase in her urine. Symptoms have fully resolved no after the medication. She is otherwise doing well and I believe this is likely peripheral vertigo. She will be discharged home. I informed her to have close follow-up with a primary care provider she states she understands. Lab Data Labs: Lab Results 12/03/23 12/03/23 12/03/23 Range/Units 10:35 11:10 11:22 WBC 6.36 (4.50-11.00) K/uL RBC 4.93 (4.00-5.20) m/uL Hgb 14.8 (12.0-16.0) gm/dL Hct 45.6 (33.0-51.0) % MCV 93 (80-100) fL MCH 30 (26-34) pg MCHC 33 (32-36) gm/dL RDW Coeff of Brigid 12.9 (11.5-15.5) % Plt Count 240 (140-440) K/uL Neut % (Auto) 74.6 H (42.0-72.0) % Lymph % (Auto) 20.0 (20-44) % [place] % (Auto) 4.4 (0.0-11.0) % Eos % (Auto) 0.5 (0.0-7.0) % Baso % (Auto) 0.3 (0.0-3.0) % Neut # (Auto) 4.70 (1.7-7.0) K/uL Lymph # (Auto) 1.27 (0.90-2.90) K/uL [place] # (Auto) 0.30 (0.00-0.90) K/UL Eos # (Auto) 0.03 (0.00-0.50) K/uL Baso # (Auto) 0.02 (0.00-0.30) K/uL Abs Immat Gran (auto) 0.01 (0.00-0.30) K/uL Imm/Tot Granulo (auto) 0.2 % Sodium 136 (135-149) mmol/L Potassium 3.9 (3.6-5.1) mmol/L Chloride 108 (96-114) mmol/L Carbon Dioxide 21 (20-32) mmol/L Anion Gap 7 (7-15) mEq/L BUN 22 (7-30) mg/dL Creatinine 0.8 (0.5-1.5) mg/dL Estimated Creat Clear 36.67 Estimated GFR 75 ml/min Glucose 179 H (60-115) mg/dL Calcium 10.4 (8.4-10.6) mg/dL Magnesium 2.2 (1.5-2.6) mg/dL Total Bilirubin 0.9 (0.1-1.5) mg/dL AST 21 (12-35) U/L ALT 15 (4-35) U/L Alkaline Phosphatase 110 (40-150) U/L Total Protein 8.0 (6.0-8.3) g/dL Albumin 4.4 (3.3-5.0) g/dL Urine Color Yellow (Yellow) Urine Appearance Turbid A (Clear) Urine pH 6.5 (5.0-8.5) Ur Specific [place] 1.025 (1.000-1.030) Urine Protein 2+ A (Negative) Urine Glucose (UA) Negative (Negative) Urine Ketones Negative (Negative) Urine Blood 2+ A (Negative) Urine Nitrite Positive A (Negative) Urine Bilirubin Negative (Negative) Urine Urobilinogen 0.2 (0.2-1.0) Ur Leukocyte Esterase 3+ A (Negative) Urine RBC 50-100 A (0-2) Urine WBC 50-100 A (0-5) Ur Squamous Epith Cells Moderate A (None-Few) Urine Bacteria Many A (None) SARS-CoV-2 (PCR) Negative SARS-CoV-2 (Negative) Influenza Type A (PCR) Negative PCR FLU A (Negative) Influenza Type B (PCR) Negative PCR FLU B (Negative) RSV (PCR) Negative PCR RSV (Negative) POC Troponin I 0.00 L (0.01-0.04) ng/ml Imaging Data CT scan - head: Radiologist's impression: Minor age-appropriate involutional changes. No acute focal finding and no specific visible cause for dizziness Please note that all CT scans at this facility use dose modulation, iterative reconstruction, and/or weight-based dosing when appropriate to reduce radiation dose to as low as reasonably achievable. Dictated by Osorio Carvalho MD @ 12/03/2023 11:16:00 AM ECG Data Attestation: I personally reviewed and interpreted this ECG as follows: Prior ECG tracings: available for review (In chart) Interpretation: Normal sinus rhythm rate 93 beats per minute, normal intervals, left axis, no ST or T-wave abnormalities. Appears similar previous EKGs on file Discharge Plan Discharge Clinical Impression: Recurrent UTI Benign paroxysmal positional vertigo Qualifiers: Laterality: unspecified laterality Qualified Code(s): H81.10 - Benign paroxysmal vertigo, unspecified ear Patient Disposition: Home, Self-Care Condition: Improved Instructions: Vertigo (DC) Additional Instructions: Take the meclizine as needed for dizziness. Also take Zofran as needed for nausea. Take the antibiotics for UTI. This appears to be a of peripheral cause of your dizziness but I do recommend follow-up with primary care provider if symptoms are persisting. Prescriptions: New cephalexin 250 mg capsule 250 mg PO QID Qty: 20 0RF ondansetron 4 mg tablet,disintegrating 4 mg PO Q6H Qty: 20 0RF meclizine 25 mg tablet 25 mg PO QID PRN (Reason: dizziness) Qty: 20 0RF Follow Up/Referrals: Shabnam Allred MD [Primary Care Provider] - Stand Alone Forms: [facility] Info Instructions
[2023-12-03 11:54] LABS: PCR FLU A Negative PCR FLU A (Negative); PCR FLU B Negative PCR FLU B (Negative); PCR RSV Negative PCR RSV (Negative); SARS PCR* Negative SARS-CoV-2 (Negative)
--- NOTE | 2023-12-03 12:23 | ED.NURSE ---
Patient ambulated to bathroom. Stated she felt much better and had no dizziness. Feels comfortable going home.
== END 2023-12-03 12:27 | disposition home or self-care (01) ==
PROVIDERS: Emergency Provider Student in an Organized Health Care Education/Training Program; PCP Internal Medicine
DX: N39.0 Urinary tract infection, site not specified (principal); H81.10 Benign paroxysmal vertigo, unspecified ear
CPT/HCPCS: 36415; 70450; 80053; 81001; 83735; 84484; 85025; 87086; 87186; 87631; 93005; 96361; 96374; 99283; 99284; 99285; A9270; J2405; J7120

== ENCOUNTER 2024-11-20 14:55 | Outpatient (CLI) | payer MEDICARE, BC, SELFPAY | END 2024-11-20 14:56 | disposition home or self-care (01) | LOC: NFLDREF 11-26 16:30 | PROVIDERS: PCP Internal Medicine; Referring Provider Internal Medicine; Visit Provider Nurse Practitioner Family | DX: R30.0 Dysuria (principal); N39.0 Urinary tract infection, site not specified; N30.90 Cystitis, unspecified without hematuria | CPT/HCPCS: 87086 ==

== ENCOUNTER 2025-01-30 08:58 | Outpatient (CLI) | payer MEDICARE, BC, SELFPAY | END 2025-01-30 08:59 | disposition home or self-care (01) | LOC: NFLDREF 02-03 02:14 | PROVIDERS: PCP Internal Medicine; Referring Provider Internal Medicine; Visit Provider Family Medicine | DX: N30.01 Acute cystitis with hematuria (principal); B96.20 Unspecified Escherichia coli [E. coli] as the cause of diseases classified elsewhere | CPT/HCPCS: 87086 ==

== ENCOUNTER 2025-02-16 13:30 | Outpatient (CLI) | payer MEDICARE, BC, SELFPAY | END 2025-02-16 13:31 | disposition home or self-care (01) | LOC: NFLDREF 02-21 07:08 | PROVIDERS: PCP Internal Medicine; Referring Provider Internal Medicine; Visit Provider Physician Assistant | DX: N30.90 Cystitis, unspecified without hematuria (principal); B96.20 Unspecified Escherichia coli [E. coli] as the cause of diseases classified elsewhere | CPT/HCPCS: 87086 ==

== ENCOUNTER 2025-03-03 09:59 | Outpatient (CLI) | payer MEDICARE, BC, SELFPAY | END 2025-03-03 10:00 | disposition home or self-care (01) | LOC: NFLDREF 03-10 15:40 | PROVIDERS: PCP Internal Medicine; Referring Provider Internal Medicine; Visit Provider Registered Nurse | DX: N30.90 Cystitis, unspecified without hematuria (principal); B96.20 Unspecified Escherichia coli [E. coli] as the cause of diseases classified elsewhere | CPT/HCPCS: 87086 ==

== ENCOUNTER 2025-03-09 15:52 | Outpatient (CLI) | payer MEDICARE, BC, SELFPAY | END 2025-03-09 15:53 | disposition home or self-care (01) | PROVIDERS: PCP Internal Medicine; Visit Provider Internal Medicine | DX: R73.03 Prediabetes (principal); Z13.6 Encounter for screening for cardiovascular disorders | CPT/HCPCS: 80061; 82947 ==

== ENCOUNTER 2025-03-23 08:34 | Outpatient (CLI) | payer MEDICARE, BC, SELFPAY | END 2025-03-23 08:35 | disposition home or self-care (01) | LOC: NFLDREF 03-25 18:43 | PROVIDERS: PCP Internal Medicine; Referring Provider Internal Medicine | DX: N30.01 Acute cystitis with hematuria (principal) | CPT/HCPCS: 87086 ==

== ENCOUNTER 2025-05-08 08:37 | Outpatient (CLI) | payer MEDICARE, BC, SELFPAY | END 2025-05-08 08:38 | disposition home or self-care (01) | LOC: NFLDREF 05-10 16:54 | PROVIDERS: PCP Internal Medicine; Referring Provider Internal Medicine; Visit Provider Nurse Practitioner Family | DX: N30.90 Cystitis, unspecified without hematuria (principal) | CPT/HCPCS: 87086 ==